=== PATIENT | male | born 1950 | race Caucasian/White ===

== ENCOUNTER 2017-09-19 14:53 | Emergency (ER) | payer OTHER, SELFPAY ==
[2017-09-19 14:54] VITALS: BP 161/75; PULSE 85; RESP 16; TEMP 36.4; O2SAT 95; BMI 42.2
--- NOTE | 2017-09-19 16:12 | RAD_ITS ---
STUDY: X-RAY - RIGHT TIBIA AND FIBULA REASON FOR EXAM: Male, 67 years old. NKI, redness and rash entire Rt lower leg since yesterday TECHNIQUE: 2 view(s) of the tibia and fibula were obtained. 3 images COMPARISON: None. FINDINGS: Normal visualized tibia. Normal visualized fibula. There do appear ossifications inferior to the medial and lateral malleoli that are well corticated which may associate with previous avulsion. Diffuse subcutaneous edema noted. RAD/Tibia & Fibula 2 Views IMPRESSION: No acute fracture. Suspect old avulsion injuries of the medial and lateral malleoli. Diffuse subcutaneous edema. Electronically Signed: Ness Carbajal MD at 16:34 EST Tel , Service support ,
[2017-09-19 16:16] LABS: Absolute Lymphocyte Count 1.18 X10^3/ul (0.83-4.51); Absolute Neutrophil Count 6.3 X10^3/uL (2.0-7.7); Basophil# 0.03 X10^3/uL; Basophil% 0.4 % (0-1); Eosinophil# 0.48 X10^3/uL; Eosinophils% 5.7 % (0-5); Hematocrit 39.6 % (40-54); Hemoglobin 12.4 g/dl (13.0-16.5); Lymphocyte # 1.18 X10^3/ul (4.0); Lymphocyte % 13.9 % (19-41); Mean Corp Hgb Conc 31.3 g/gl (32-36); Mean Corpuscular Hgb 24.5 pg (27.0-32.0); Mean Corpuscular Volume 78.1 fL (80-94); Mean Platelet Vol. 9.4 fl (6.2-12.0); Monocyte# 0.44 X10^3/uL; Monocyte% 5.2 % (0-10); Neutrophil # 6.34 X10^3/uL (2.7-7.7); Neutrophil % 74.7 % (47-70); Platelet Count 172 K/mm3 (150-450); RBC Distribution Width CV 16.5 % (11.6-14.6); RBC Distribution Width SD 46.6 fl (35.1-43.9); Red Blood Count 5.07 M/mm3 (4.6-6.2); White Blood Count 8.5 K/mm3 (4.4-11.0)
[2017-09-19 16:17] LABS: POSITIVE COUNT NO; POSITIVE DIFFERENTIAL NO; POSITIVE MORPHOLOGY NO
[2017-09-19 16:23] LABS: International Normalized Ratio 1.1; Prothrombin Time (Protime)PT. 13.7 SECONDS (11.7-14.9)
[2017-09-19 16:24] LABS: Partial Thromboplast Time 26.6 Seconds (24.1-36.2)
[2017-09-19 16:36] LABS: Anion Gap 7 (5-15); BUN 23 mg/dL (7-18); BUN/Creat Ratio 20.4 RATIO (10-20); Calcium,Total 9.2 mg/dL (8.5-10.1); Chloride 102 mmol/L (98-107); Creatinine, Serum 1.13 mg/dL (0.70-1.30); EST Glomerular Filtration Rate 69 mL/min (>60); Est Glom Filt Rate - Afr Amer 84 mL/min (>60); Estimated Creatinine Clearance 67.29 ml/min; Glucose 118 mg/dL (74-106); Potassium 3.7 mmol/L (3.5-5.1); Sodium Level 139 mmol/L (136-145)
[2017-09-19 17:17] VITALS: BP 141/70; PULSE 75; RESP 18
--- NOTE | 2017-09-19 17:36 | ED.VISSUMM ---
- ER Visit Summary Date of Service: 09/19/17 Chief Complaint: Right leg rash History of Present Illness: The patient is a 67 M presenting for evaluation secondary to right leg rash. Patient states that over the course of last 24 hours he has developed a red rash in his right leg. He states that it is itchy and aching in sensation. States the pain is somewhat worse with palpation. Denies any fevers chills or sweats. Denies any injuries. Urgent care evaluated the patient and sent him to the emergency department. Patient denies being on any sort of blood thinners does not have any rashes similar to this on his body. Physical Examination: Physical exam unremarkable and noted in the template except for right lower extremity exam. Right leg shows some blisters anteriorly ?2 that measure about 4 cm. There is petechia mainly over the anterior portion of the lower leg with some extension to the calf. 2+ DP and PT pulses. Normal range of motion of the foot ankle knee and hip. No evidence of lymphangitic streaking. No subcutaneous emphysema to palpation. Test Results: Tib-fib x-ray shows soft tissue edema. CBC shows no leukocytosis, normal platelets. Chemistry liver and coagulation panels are found to be within normal limits. Emergency Department Course and Treatment: Patient presented secondary to a rash on his leg. This did have petechia, there was some concern for the possibility of serious infection, but the patient is afebrile well-appearing has no subcutaneous emphysema no evidence of necrotizing fasciitis at this time. X-ray was obtained and was negative laboratory workup was essentially unremarkable. At this point the likelihood is that patient has a beta hemolytic strep infection of his lower leg, but at this point I do not believe that he requires admission. Will be started on a course of Keflex, and was discharged with strict discharge instructions for which to return. He will follow-up with his primary care physician within the next 3 days. Disposition: Discharge Impression: 1. Right leg cellulitis This note was generated with [employer] dictation software. It may contain incorrect words, spelling, and punctuation that were not noted in review of the chart prior to signing ED Disposition - Plan for ED Patient: Disposition: Home or Assisted Living Chief Complaint: Lower Extremity Injury Diagnosis: Cellulitis Instructions: Cellulitis - Causes,Symptoms,Treating Prescriptions: Cephalexin [Keflex] 500 mg PO Q6 #40 cap Referrals: Johnny Mcallister MD [Primary Care Provider] - 3-5 Days
[2017-09-19] MEDS: Cephalexin 250 MG Capsule 500 MG PO (17:58)
[2017-09-19 18:00] VITALS: BP 143/64; PULSE 87; RESP 20; TEMP 36.6; O2SAT 98
== END 2017-09-19 18:00 | disposition home or self-care (01) ==
PROVIDERS: Emergency Provider Emergency Medicine; Family Provider Internal Medicine; PCP Internal Medicine
DX: L03.115 Cellulitis of right lower limb (principal); R23.3 Spontaneous ecchymoses; E66.9 Obesity, unspecified; J44.9 Chronic obstructive pulmonary disease, unspecified; E11.9 Type 2 diabetes mellitus without complications; I10 Essential (primary) hypertension; E78.00 Pure hypercholesterolemia, unspecified; G47.33 Obstructive sleep apnea (adult) (pediatric); G25.81 Restless legs syndrome; Z79.51 Long term (current) use of inhaled steroids; Z79.82 Long term (current) use of aspirin; Z79.4 Long term (current) use of insulin; Z79.899 Other long term (current) drug therapy
CPT/HCPCS: 73590; 80048; 85025; 85610; 85730; 99283; A4216

== ENCOUNTER → 2021-04-15 16:06 | Outpatient (CLI) | payer OTHER, SELFPAY | PROVIDERS: PCP Internal Medicine; Visit Provider Urology | DX: R31.0 Gross hematuria (principal) | CPT/HCPCS: 87077; 87086; 87088; 87186 ==

== ENCOUNTER 2021-05-05 08:18 | Day surgery (SDC) | payer MEDICARE, OTHER, SELFPAY ==
[2021-05-03 15:08] LABS: Probe Check PASS; Specimen Processing Control PASS
[2021-05-05] VITALS (7 sets, daily range): BP systolic 132–155; BP diastolic 58–76; PULSE 76–87; RESP 12–18; TEMP 36.2–36.5; O2SAT 92–97; BMI 42.7
[2021-05-05] MEDS: Lactated Ringers 1,000 ML 100 ML IV (09:08)
[2021-05-05 09:20] LABS: Bedside Glucose 190 mg/dL (70-110)
--- NOTE | 2021-05-05 09:55 | PCM.DC ---
Discharge Instructions Diet Discharge Diet: No restrictions Activity Discharge Activity: Return to Normal Activity and May Not Drive (while taking narcotic pain medications.) Dressing / Incision Call your doctor if you observe: Fever of 101 or Higher Catheter: Steiner to leg bag and Steiner to large bag Drain: [place] Follow Up Care Please Follow Up With: Max Mcdonough MD When: Call [phone] for an appointment Test Results: Test results from this visit will be discussed in further detail at your follow-up appointment, if applicable. Discharge Plan Admission Primary Reason for Your Visit: sp tube Attending Provider: Max Mcdonough Primary Care Provider: Montez Glass Discharge Orders/Prescriptions Prescriptions: Continued lisinopril 20 MG tablet 20 mg PO BID RF: 0 sertraline 100 MG tablet 150 mg PO DAILY RF: 0 simvastatin 40 MG tablet 40 mg PO QHS RF: 0 metformin 1,000 MG tablet 1,000 mg PO BID RF: 0 hydrochlorothiazide 25 MG tablet 25 mg PO DAILY RF: 0 albuterol sulfate [ProAir HFA] 1 PUFF inhaler 1 puff inhalation Q6H PRN PRN (Reason: Bronchodialation) RF: 0 insulin lispro [Humalog KwikPen Insulin] 100 UNIT/ML insulin pen 70 units subcut TID RF: 0 Lantus Solostar U-100 Insulin 100 UNITS/ML insulin pen 80 unit subcut BID RF: 0 Breo Ellipta 1 EACH blister with device 1 puff inhalation DAILY RF: 0 pramipexole [Mirapex] 0.5 MG tablet 1 mg PO QHS RF: 0 Held aspirin 81 MG tablet,delayed release (DR/EC) 81 mg PO DAILY RF: 0 Hold Instructions: Resume on 05/12/21. Referrals / Follow Up: Max Mcdonough MD [STAFF PHYSICIAN] - Montez Glass MD [Primary Care Provider] - Disposition Disposition (needs filled in before D/C Order can be placed): Home, Self Care
[2021-05-05] MEDS: Lubricating Jelly 60 GM Tube 30 GM TOPICAL (10:35)
[2021-05-05] MEDS: Lidocaine 2% (20 ml mdv) 20 ML Vial (10:35)
--- NOTE | 2021-05-05 10:48 | OP.PCM_ITS ---
Report of Operation Date of Procedure: 05/05/21 Pre-Operative Diagnosis: Urinary incontinence history of prostate cancer status post multiple treatments with chronic incontinence and chronic Steiner catheter Post-Operative Diagnosis: The same Surgery/Procedure Performed:: Placement of suprapubic catheter Description of Surgical Findings:: This is a 71-year-old gentleman who had prostate cancer was treated with radiation therapy then had recurrence this was treated with cryoablation he now has significant incontinence and leakage of urine he underwent a sphincter placement but the sphincter failed and had to be removed so now at this point he just has a chronic Steiner catheter which is changed monthly the catheter is very bothersome and painful to the penis so I recommended we manage his bladder incontinence with a suprapubic catheter he was agreeable with this understands it with this approach he still can have incontinence and leakage he still can have risk of infection and bleeding encrustation bladder stones and he still cannot get any the catheter change about every month but he was agreeable with the suprapubic catheter as a management option. Patient was taken back to the operating room at the [facility] duction of general anesthesia he was placed upon the table and then dorsolithotomy position. The lower abdomen penis and testicles were prepped and draped usual sterile fashion went in with a flexible cystoscope entire length the urethra was normal the prostate was fairly raw tissue within the prostate no sphincter was identified open bladder neck and open sphincter once inside the bladder distended the bladd er is much is a good with the running water through the flexible cystoscope I then used a finder needle to find away right suprapubically from the skin into the bladder I then introduced the trocar went right below the pubic bone into the bladder and direct visualization into the bladder and then put the sheath through the trocar and then to the sheath to place a 16 [place] catheter into the bladder and then filled the catheter with 10 cc put this to gravity drainage remove the sheath and peeled peel off the sheath from the catheter and then secured the catheter to the skin with stitches. Patient will needed catheter for 6 weeks and will come the office for catheter change in 6 weeks. Surgeon: robinson Type of Anesthesia: General Drains: sp tube Admit VTE Documentation VTE Present on Admission: No VTE Mechan Device Prophylaxis: SCD's
[2021-05-05 11:06] LABS: Bedside Glucose 165 mg/dL (70-110)
== END 2021-05-05 12:40 | disposition home or self-care (01) ==
LOC: SDC 08:19 → AC 08:19
PROVIDERS: PCP Family Medicine; Referring Provider Urology; Visit Provider Urology
PROC: 0T9B40Z Drainage of Bladder with Drainage Device, Percutaneous Endoscopic Approach (ICD-10-PCS; CPT 52005; principal; 2021-05-05 10:15)
DX: Z46.6 Encounter for fitting and adjustment of urinary device (principal); R32 Unspecified urinary incontinence; Z85.46 Personal history of malignant neoplasm of prostate; Z92.3 Personal history of irradiation; Z79.899 Other long term (current) drug therapy; Z79.4 Long term (current) use of insulin; Z79.82 Long term (current) use of aspirin; J44.9 Chronic obstructive pulmonary disease, unspecified; E11.9 Type 2 diabetes mellitus without complications; E78.00 Pure hypercholesterolemia, unspecified; F32.9 Major depressive disorder, single episode, unspecified; G47.30 Sleep apnea, unspecified
CPT/HCPCS: 51102; 82962; 87635; C9803; J7120; U0005; J2405; U0003

== ENCOUNTER 2021-08-31 16:33 | Outpatient (CLI) | payer MEDICARE, OTHER, SELFPAY ==
--- NOTE | 2021-08-31 16:42 | RAD_ITS ---
EXAM: XR ABDOMEN, 2 VIEWS CLINICAL INDICATION: ABD.PAIN TECHNIQUE: Frontal view of the abdomen/pelvis with upright view of the abdomen. This report was created using [employer] report generation technology. COMPARISON: None. FINDINGS: LOWER THORAX: No acute pathology. INTRAPERITONEAL SPACE: No free air. GASTROINTESTINAL TRACT: Stool throughout the colon suggesting constipation. Non-obstructive. No bowel or stomach distention. ORGANS: Unremarkable as visualized. No organomegaly. No abnormal calcifications. BONES/JOINTS: Degenerative findings in the lumbar spine. SOFT TISSUES: No acute pathology. RAD/Abd Inc Decub and/or Erect IMPRESSION: Stool throughout the colon suggesting constipation. Electronically Signed: Jeronimo Maza MD at 17:10 EST ,
[2021-08-31 17:10] LABS: Absolute Neutrophil Count 8.7 X10^3/uL (2.0-7.7); Basophil# 0.03 X10^3/uL; Basophil% 0.3 % (0-1); Eosinophil# 0.25 X10^3/uL; Eosinophils% 2.2 % (0-5); Hematocrit 41.3 % (40-54); Hemoglobin 13.3 g/dL (13.0-16.5); Lymphocyte % 14.8 % (19-41); Mean Corp Hgb Conc 32.2 g/dL (32-36); Mean Corpuscular Hgb 24.6 pg (27.0-32.0); Mean Corpuscular Volume 76.3 fL (80-94); Mean Platelet Vol. 9.4 fl (6.2-12.0); Monocyte# 0.79 X10^3/uL; Monocyte% 6.9 % (0-10); NRBC Flagged by Analyzer 0 % (0-5); Neutrophil # 8.66 X10^3/uL (2.7-7.7); Neutrophil % 75.3 % (47-70); Platelet Count 227 K/mm3 (150-450); RBC Distribution Width CV 17.6 % (11.6-14.6); RBC Distribution Width SD 47.8 fl (35.1-43.9); Red Blood Count 5.41 M/mm3 (4.6-6.2); White Blood Count 11.5 K/mm3 (4.4-11.0)
[2021-08-31 18:24] LABS: ALB/GLOB Ratio 0.9 RATIO (0.9-2.4); AST(SGOT) 20 U/L (15-37); Alanine Aminotransfer ALT/SGPT 33 U/L (16-61); Albumin, Serum 3.6 g/dL (3.2-5.0); Alkaline Phosphatase 68 U/L (45-117); Anion Gap 8 (5-15); BUN 18 mg/dL (7-18); BUN/Creat Ratio 16.4 RATIO (10-20); Calcium,Total 9.3 mg/dL (8.5-10.1); Chloride 98 mmol/L (98-107); EST Glomerular Filtration Rate 71 mL/min (>60); Est Glom Filt Rate - Afr Amer 85 mL/min (>60); Globulin 4.1 g/dL (2.2-4.2); Glucose 282 mg/dL (74-106); Potassium 4.1 mmol/L (3.5-5.1); Protein, Total 7.7 g/dL (6.4-8.2); Sodium Level 134 mmol/L (136-145); Thyroid Stim Hormone (TSH) 1.68 uIU/mL (0.358-3.74)
[2021-09-01 09:08] LABS: Hepatitis C Antibody Non-Reactive (Nonreactive); Vitamin D,25 Hydroxy 27.6 ng/mL
== END 2021-08-31 23:59 | disposition short-term general hospital (02) ==
LOC: RAD 16:38 → LAB 16:56
PROVIDERS: PCP Family Medicine; Referring Provider Family Medicine Geriatric Medicine; Visit Provider Family Medicine Geriatric Medicine
DX: E11.9 Type 2 diabetes mellitus without complications (principal); E55.9 Vitamin D deficiency, unspecified; R10.9 Unspecified abdominal pain; Z12.5 Encounter for screening for malignant neoplasm of prostate; Z13.89 Encounter for screening for other disorder
CPT/HCPCS: 36415; 74019; 80053; 82306; 84153; 84443; 85025; 86803; G0103

== ENCOUNTER 2021-09-14 07:41 | Outpatient (CLI) | payer MEDICARE, OTHER, SELFPAY ==
--- NOTE | 2021-09-14 07:55 | CT_ITS ---
STUDY: LOW DOSE CT LUNG CANCER SCREENING REASON FOR EXAM: Male, 71 years old. HX OF TOBACCO USE. Patient smoked 2 packs per day for 15 years. RADIATION DOSAGE (If Supplied By Facility): CTDIvol = ( 4.02 ) mGy, DLP = ( 156.02 ) mGycm TECHNIQUE: No contrast was administered. Low dose technique was utilized (average mAS-38 and kVp 120). 1.25 mm axial source images with a slice interval of 1.25-mm were reconstructed in lung windows. 2.5 mm axial source images with a slice interval of 2.5-mm were reconstructed in lung windows. 5.0 mm axial source images with a slice interval of 5.0-mm were reconstructed in soft tissue windows. Nodule measured using lung windows on PACS and/or independent workstation with automated measurement of minimum and maximum diameter. Nodule measurement reported as average diameter rounded to the nearest whole number. Growth is defined as an increase ins size of greater than 1.5 mm. COMPARISON: None. NODULES: No suspicious nodules are seen. Emphysema: Mild scarring and bronchiectasis in the posterior medial segments of both lower lobes. Endobronchial lesion: Unremarkable Aorta: Minimal atherosclerotic plaques of the aortic arch. Coronary arteries: Coronary artery calcifications. Heart: Unremarkable Pulmonary artery: Unremarkable Mediastinal nodes: Small benign-appearing mediastinal lymph nodes. Other chest and abdominal findings: Degenerative changes of the thoracic vertebrae. CT/Low Dose CT Lung Screening IMPRESSION: Lung-RADS category 2 - Continue annual screening with LDCT in 12 months. IMPORTANT NOTES FOR USE: ACR Lung-RADS Version 1.1 Assessment Categories Release Date: 2018 Category: Coded 0-4 bases on nodule(s) with highest degree of suspicion. Negative screen is defined as categories 1 and 2; a positive screen is defined as categories 3 and 4. Category 3 and 4A nodules that are unchanged on interval CT should be coded as category 2, and individuals returned to screening in 12 months. Category 4X: Category 3 or 4 nodules with additional imaging findings that increase the suspicion of lung cancer, such as spiculation, GGN that doubles in size in 1 year, enlarged lymph notes, etc. Category Modifiers: S (significant finding unrelated to lung cancer) Electronically Signed: Ismael Manuel MD at 11:58 EST ,
--- NOTE | 2021-09-14 08:09 | AAAS_ITS ---
Reason For Study: Routine general medical exam Aorta Measurements Aorta Doppler Measurements Proximal aorta measures1.69 x 1.65cm. in cross- Peak systolic flow velocities within the proximal sectional axis. aorta measure 66.1 cm/sec. Proximal aorta measures1.69cm. in longitudinal Peak systolic flow velocities within the mid aorta axis. measure 78.9 cm/sec. Mid aorta measures1.63 x 1.65cm. in cross- Peak systolic flow velocities within the distal sectional axis. aorta measure 69.8 cm/sec. Mid aorta measures1.61cm. in longitudinal axis. Distal aorta measures1.90 x 1.87cm. in cross- sectional axis. Distal aorta measures1.89cm. in longitudinal axis. Left Iliac Artery Left iliac artery measures 1.16 x 1.19 cm. in the cross-sectional axis. Left iliac artery measures 1.17 cm. in the longitudinal axis. Peak systolic velocity in the left iliac artery measures 123.3 cm/sec. Right Iliac Artery Right iliac artery measures 0.98 x 0.98 cm. in the cross-sectional axis. Right iliac artery measures 1.04 cm. in the longitudinal axis. Peak systolic velocity in the right iliac artery measures 119 cm/sec. Procedure Aorta IVC Iliac vasculature or bypass grafts 85246. Technically difficult exam due to pt body habitus. Exam performed in department. VL/AAA Screening Interpretation Summary The dimensions of the intra-abdominal aorta appear normal, without evidence of aneurysmal dilatation. The iliac arteries also appear normal in caliber bilaterally. The i ntra-abdominal aorta and iliac arteries are patent, demonstrating pulsatile arterial flow and normal peak systolic velocities. Ordering Physician: Sachin Dominguez Referring Physician: Sachin Dominguez Chi Performed By: Yulissa Worley RVT
== END 2021-09-14 23:59 | disposition home or self-care (01) ==
LOC: CT 07:42
PROVIDERS: PCP Family Medicine Geriatric Medicine; Referring Provider Family Medicine Geriatric Medicine; Visit Provider Family Medicine Geriatric Medicine
DX: Z87.891 Personal history of nicotine dependence (principal)
CPT/HCPCS: 71271; 76706

== ENCOUNTER 2021-09-29 08:07 | Outpatient (CLI) | payer MEDICARE, OTHER, SELFPAY | END 2021-09-29 23:59 | disposition home or self-care (01) | PROVIDERS: PCP Family Medicine Geriatric Medicine; Referring Provider Urology; Visit Provider Urology | DX: Z00.00 Encounter for general adult medical examination without abnormal findings (principal) ==

== ENCOUNTER 2021-10-06 08:43 | Outpatient (CLI) | payer MEDICARE, OTHER, SELFPAY ==
--- NOTE | 2021-10-06 09:00 | PET_ITS ---
EXAMINATION: FDG PET/CT INDICATIONS: A 71-year-old male with history of carcinoma of the prostate presenting for restaging examination. COMPARISON EXAMINATION: None available TECHNIQUE: Following the intravenous administration of 12.83 mCi of F-18 deoxyglucose via the right antecubital fossa, multiplanar image acquisitions of the neck, chest, abdomen and pelvis to level of mid thigh, obtained at one hour post radiopharmaceutical administration contemporaneously interpreted with the current CT of the neck, chest, abdomen and pelvis to level of mid thigh, dated 10/06/21 via coregistration reveal: SERUM GLUCOSE LEVEL: 110 mg/dl. HEIGHT: 70 inches. WEIGHT: 296 lbs. FINDINGS: 1. There is no quantitative scintigraphic evidence of abnormal increased glucose metabolism on meticulous inspection of whole body acquisitions to include all three axis reconstructions. 2. Normal physiologic distribution of the radiopharmaceutical is apparent in the hepatic and splenic parenchyma, both renal units, bladder and visualized intestinal tract. The visualized portion of the cerebral cortical-subcortical structures demonstrate symmetric and preserved glucose metabolism. Diffuse radiopharmaceutical concentration is noted in all four quadrants of the abdomen and pelvis. There is radiopharmaceutical defined in the suprapubic catheter, as well as prostatic urethra. Pertinent CT findings are as follows: CHEST: There is atherosclerotic calcification defined in the thoracic aorta without evidence of dilatation-aneurysm formation. Coronary arterial calcification is observed. Bilateral axillary and scattered mediastinal soft tissue densities reveal no evidence of quantitatively significant increased FDG uptake. There are no parenchymal densities-nodules defined in the right and left hemithorax with discernible increased tracer concentration. ABDOMEN AND PELVIS: There is atherosclerotic calcification defined in the abdominal aorta without evidence of dilatation-aneurysm formation. Pelvic arterial calcification is observed. A suprapubic catheter is defined. Bilateral fat containing inguinal hernias are observed. Dystrophic calcification is manifest within the lower pelvis associated with the apparent prostate gland-prostate bed. Bilateral inguinal soft tissue densities with fatty hilus are ametabolic. Scattered subcentimeter mesenteric, as well as retroperitoneal soft tissue nodules are non-glucose avid. SKELETAL: Degenerative changes are noted in the cervical, thoracic and lumbar spine without evidence of increased radiopharmaceutical concentration. There is no evidence of sclerotic, mixed sclerotic-lytic and/or lytic changes noted on review of the skeletal structures manifesting an increase in glucose metabolism. PET/PET/CT Tumor Base -Thigh Subs IMPRESSION: 1. NEGATIVE EXAMINATION. There is no definitive quantitative scintigraphic evidence of FDG avid recurrent-metastatic/viable neoplasm. Electronic Signature Anuel Ocasio D.O. Accurate Quantification of SUVs for this report are calculated using the exclusive [employer]. ([place].S. Patent No. [id number] [id number]). Standardization and correction of the FDG SUV metric via [employer] technology allow for vendor non-specific objective quantitative examination comparison and optimization of the sensitivity and specificity of the FDG PET-CT examination. Electronically Signed: Anuel Ocasio DO at 8:14 EST ,
== END 2021-10-06 23:59 | disposition home or self-care (01) ==
PROVIDERS: PCP Family Medicine Geriatric Medicine; Referring Provider Urology; Visit Provider Urology
DX: C61 Malignant neoplasm of prostate (principal); R97.20 Elevated prostate specific antigen [PSA]
CPT/HCPCS: 78815; A9552

== ENCOUNTER 2021-11-10 10:43 | Outpatient (CLI) | payer MEDICARE, OTHER, SELFPAY ==
--- NOTE | 2021-11-10 11:00 | PET_ITS ---
STUDY: WHOLE-BODY PET/CT STUDY REASON FOR EXAM: Male, 71 years old. MALIGNANT NEOPLASM OF PROSTATE RADIATION DOSAGE (If Supplied By Facility): CTDIvol = ( ) mGy, DLP = ( ) mGycm. Individualized dose optimization techniques were used for this CT.? FLUOROSCOPY TIME (if supplied): ( ) minutes/seconds TECHNIQUE: Patient was injected with 9.25 mCi of F-18 FDG. A whole body multiplanar PET study was performed along with simultaneous noncontrasted CT scan. COMPARISON: 10/06/2021 FINDINGS: There is abnormal PET activity noted in the AP window lymph node with uptake value of 6. This is concerning for a neoplastic process. This was not seen on the previous study No other suspicious increased PET activity identified. Normal physiologic activity noted within the brain, salivary glands, heart, liver spleen and GI and systems. No suspicious activity within osseous structures. The CT images demonstrate that the lymph node in question is on axial image 240, series 202 and measures 1.11 cm in short axis dimension. No other suspicious adenopathy is noted. There is no superimposed acute pulmonary process. There are calcified coronary vessels. Cuts through the abdomen do not show suspicious solid organ abnormality, there is a parapelvic right renal cyst. Scattered colonic diverticula noted, there is a suprapubic catheter present. PET/PET/CT Tumor Base -Thigh Init IMPRESSION: Abnormal increased activity in the AP window lymph node with uptake value of 6. This is concerning for a metastatic lesion and was not present on the previous study. Electronically Signed: Remi Baron MD at 16:00 EDT ,
== END 2021-11-10 23:59 | disposition home or self-care (01) ==
LOC: ONC 10:43
PROVIDERS: PCP Family Medicine Geriatric Medicine; Referring Provider Urology; Visit Provider Urology
DX: C61 Malignant neoplasm of prostate (principal)
CPT/HCPCS: 78815; A9595

== ENCOUNTER 2021-11-13 13:27 | Inpatient (IN) | payer MEDICARE, OTHER, SELFPAY ==
[2021-11-13] VITALS (13 sets, daily range): BP systolic 126–185; BP diastolic 48–65; PULSE 75–91; RESP 15–22; TEMP 36.9–40.1; O2SAT 83–99; BMI 43.0
--- NOTE | 2021-11-13 13:33 | RAD_ITS ---
STUDY: X-RAY CHEST REASON FOR EXAM: Male, 71 years old. fever TECHNIQUE: Single AP portable view of the chest. COMPARISON: None. FINDINGS: The lungs are clear and expanded. There is no demonstrated pleural abnormality. Normal size heart. Normal mediastinum and sona. Normal visualized pulmonary arteries. Normal visualized aortic arch and descending thoracic aorta. Normal visualized thoracic spine. Normal visualized ribs, clavicles, and shoulders. There is no demonstrated abnormality of the visualized soft tissue structures of the upper abdomen. RAD/Chest 1 View (Portable) IMPRESSION: Normal x-ray examination of the chest. Electronically Signed: Anuel Kimball MD at 15:20 EDT ,
--- NOTE | 2021-11-13 13:33 | EKG12_ITS ---
Test Reason : Blood Pressure : / mmHG Vent. Rate : 083 BPM Atrial Rate : 083 BPM P-R Int : 204 ms QRS Dur : 082 ms QT Int : 376 ms P-R-T Axes : 058 -09 076 degrees QTc Int : 441 ms Normal sinus rhythm Poor R wave progression Confirmed by NEEL ESPITIA, CJ ([id number]), editorial assistant JULY PELAYO ([id number]) on 11/15/2021 12:56:11 PM Referred By: MATT Confirmed By:CJ SHAIKH MD
[2021-11-13] MEDS: 0.9% Normal Saline 1,000 ML 999 ML IV ×2 (13:44→15:51)
[2021-11-13] MEDS: Acetaminophen 500 MG Tablet 1000 MG PO (13:50)
[2021-11-13] MEDS: Ondansetron 4 MG/2 ML Vial IV (13:50)
--- NOTE | 2021-11-13 13:53 | EX.ED.DYSGE1 ---
HPI <MILKA Esquivel - Last Filed: 11/13/21 17:43> History of Present Illness Chief Complaint: Fever Narrative Narrative: 71-year-old male with PMH of HTN, HLD, DM2, COPD, HAN, history of prostate cancer, suprapubic catheter presents with a fever x3 days. He has had fever with nausea and dry heaving. He has been taking Tylenol with the last dose last night. Denies vomiting. Denies chest pain, shortness of breath, or cough. He has chronic abdominal pain and constipation from his history of radiation treatments for the prostate cancer but this is at baseline. No diarrhea. His suprapubic catheter was changed [address] Mcdonough and is changed monthly. Denies urinary changes or signs of infection. PFSH <MILKA Esquivel - Last Filed: 11/13/21 17:43> PFSH Medical History Bladder disease Bruising Cancer COPD (chronic obstructive pulmonary disease) CPAP (continuous positive airway pressure) dependence Depression Diabetes Dietary restriction Former smoker High cholesterol History of cataract History of diverticulitis History of edema History of stress test Hypertension Indwelling urethral catheter present Insulin dependent diabetes mellitus Prostate disease Restless legs Shortness of breath on exertion Sleep apnea Wears glasses Wears hearing aid Home Medications Breo Ellipta 1 puff INHALATION DAILY 05/31/17 [History Last Taken 05/05/21] Lantus Solostar U-100 Insulin 80 unit SUBCUT BID 05/31/17 [History Last Taken 05/05/21 40] albuterol sulfate [ProAir HFA] 1 puff INHALATION Q6H PRN PRN 05/31/17 [History Last Taken Unknown] hydrochlorothiazide 25 mg PO DAILY 05/31/17 [History Last Taken Unknown] insulin lispro [Humalog KwikPen Insulin] 70 units SUBCUT TID 05/31/17 [History Last Taken Unknown] lisinopril 20 mg PO BID 05/31/17 [History Last Taken Unknown] metformin 1,000 mg PO BID 05/31/17 [History Last Taken Unknown] simvastatin 40 mg PO QHS 05/31/17 [History Last Taken Unknown] aspirin 81 mg PO DAILY 09/19/17 [History Last Taken Unknown] pramipexole [Mirapex] 1 mg PO QHS 09/19/17 [History Last Taken Unknown] citalopram 20 mg PO DAILY 11/13/21 [History Last Taken Unknown] plecanatide [Trulance] 3 mg PO DAILY 11/13/21 [History Last Taken Unknown] primidone 100 mg PO QHS 11/13/21 [History Last Taken Unknown] solifenacin 10 mg PO DAILY 11/13/21 [History Last Taken Unknown] Allergy/AdvReac Type Severity Reaction Status Date / Time No Known Allergies Allergy Verified 05/05/21 08:45 Family History (Updated 11/13/21 @ 17:56 by Quintin JARQUIN) Father Diabetes Mother Heart disease Surgical History History of eye surgery History of implantation of artificial sphincter Social History (Updated 11/13/21 @ 17:56 by Quintin JARQUIN) Smoking Status: Former smoker Tobacco: How many years used: 20 how long ago did patient quit smokin years ago, was smoking two packs per day. alcohol intake: former ROS <MILKA Esquivel - Last Filed: 11/13/21 17:43> ROS ED ROS Narrative Constitutional: Positive for fever, chills, malaise. Eyes: Negative for visual change. ENT: Negative for sore throat, ear pain, rhinorrhea. CVS: Negative for palpitations, chest pain, syncope. Respiratory: Negative for shortness of breath, cough, orthopnea. GI: Positive for abdominal pain?chronic, nausea, constipation. Negative for vomiting, diarrhea, melena, hematochezia. : Negative for dysuria, hematuria or frequency. Neuro: Negative for headache, motor/sensory dysfunction. Skin: Negative for rash, abscess, or wound. Musc: Negative for joint pain, swelling, trauma. Heme: Negative for easy bruising, bleeding, lymphadenopathy. EXAM <MILKA Esquivel - Last Filed: 11/13/21 17:43> Physical Exam Narrative Exam Narrative: CONST: Patient lying in bed, diaphoretic. EYES: Normal inspection. ENT: Normal inspection, slightly dry mucous membranes. NECK: Normal inspection. RESP: No respiratory distress, CTAB. CVS: Regular rate and rhythm, no murmur, no gallop. ABD: Soft and nontender, no guarding or rebound, mild distention, no hepatosplenomegaly. Back: Normal inspection. SKIN: Color normal, no rash, warm, dry, intact. EXTREMITIES: Normal appearance, no pedal edema. NEURO: Oriented x4. PSYCH: Normal affect. Const Vital Signs: 11/13/21 13:28 11/13/21 13:51 11/13/21 13:59 Temperature 104.2 F H 100.3 F H Temperature Source Tympanic Oral Pulse Rate 87 87 Respiratory Rate 18 22 H Respiratory Effort Normal Respiratory Pattern Normal Blood Pressure 185/65 H 185/65 H Blood Pressure Mean 105 105 Pulse Ox 92 83 Oxygen Delivery Method Room Air Nasal Cannula Oxygen Flow Rate (L/min) 3 11/13/21 14:01 11/13/21 15:11 11/13/21 15:31 Temperature 103.1 F H 103 F H Temperature Source Oral Oral Pulse Rate 79 Respiratory Rate 15 Respiratory Effort Respiratory Pattern Blood Pressure 151/59 H Blood Pressure Mean 89 Pulse Ox 92 96 Oxygen Delivery Method Nasal Cannula Nasal Cannula Oxygen Flow Rate (L/min) 3 3 11/13/21 16:45 11/13/21 16:46 11/13/21 17:00 Temperature 100.3 F H 100.3 F H 99.4 F H Temperature Source Oral Oral Oral Pulse Rate 77 75 Respiratory Rate 18 15 Respiratory Effort Respiratory Pattern Blood Pressure 126/48 H 130/57 H Blood Pressure Mean 74 81 Pulse Ox 96 96 Oxygen Delivery Method Nasal Cannula Nasal Cannula Oxygen Flow Rate (L/min) 3 2 <Dr. Olman Glez, DO - Last Filed: 11/13/21 18:02> Physical Exam Const Vital Signs: 11/13/21 13:28 11/13/21 13:51 11/13/21 13:59 Temperature 104.2 F H 100.3 F H Temperature Source Tympanic Oral Pulse Rate 87 87 Respiratory Rate 18 22 H Respiratory Effort Normal Respiratory Pattern Normal Blood Pressure 185/65 H 185/65 H Blood Pressure Mean 105 105 Pulse Ox 92 83 Oxygen Delivery Method Room Air Nasal Cannula Oxygen Flow Rate (L/min) 3 11/13/21 14:01 11/13/21 15:11 11/13/21 15:31 Temperature 103.1 F H 103 F H Temperature Source Oral Oral Pulse Rate 79 Respiratory Rate 15 Respiratory Effort Respiratory Pattern Blood Pressure 151/59 H Blood Pressure Mean 89 Pulse Ox 92 96 Oxygen Delivery Method Nasal Cannula Nasal Cannula Oxygen Flow Rate (L/min) 3 3 11/13/21 16:45 11/13/21 16:46 11/13/21 17:00 Temperature 100.3 F H 100.3 F H 99.4 F H Temperature Source Oral Oral Oral Pulse Rate 77 75 Respiratory Rate 18 15 Respiratory Effort Respiratory Pattern Blood Pressure 126/48 H 130/57 H Blood Pressure Mean 74 81 Pulse Ox 96 96 Oxygen Delivery Method Nasal Cannula Nasal Cannula Oxygen Flow Rate (L/min) 3 2 [facility] <MILKA Esquivel - Last Filed: 11/13/21 17:43> [facility] Narrative Medical decision making narrative: Patient presents with a fever. He appears ill but nontoxic. Temp was 104.2F, otherwise normal vital signs. He is slightly diaphoretic and has dry mucous membranes. Heart is regular. Lungs clear. Abdomen soft with no peritoneal signs. Labs show leukocytosis of 14.1 and lactate of 2.6. Chest x-ray and rapid Covid and flu testing are negative. Clean urinalysis sample from his suprapubic catheter is consistent with UTI. Urine and blood cultures are pending. CT shows stranding of the right kidney which is likely pyelonephritis. Normal left kidney. Patient was treated with IV fluids, Tylenol, Toradol, and Rocephin and will be admitted for sepsis and complicated UTI. Case was discussed with the hospitalist and he was transferred to the floor in stable condition. Diagnosis 1. Right pyelonephritis, complicated UTI with suprapubic catheter 2. Sepsis ED attending interpretation 1 view chest shows normal heart size, no acute infiltrate. Lab Data Labs: Laboratory Results - last 24 hr 11/13/21 11/13/21 11/13/21 13:45 13:45 13:45 WBC 14.1 H RBC 5.17 Hgb 12.7 L Hct 38.9 L MCV 75.2 L MCH 24.6 L MCHC 32.6 RDW Std Deviation 46.4 H RDW Coeff of Bhavin 17.2 H Plt Count 168 MPV 9.0 Immature Gran % (Auto) 0.600 Neut % (Auto) 87.2 H Lymph % (Auto) 6.3 L [place] % (Auto) 5.7 Eos % (Auto) 0.1 Baso % (Auto) 0.1 Absolute Neuts (auto) 12.3 H Absolute Lymphs (auto) 0.88 Nucleated RBC % 0 PT 14.8 INR 1.2 APTT 27.6 Sodium 133 L Potassium 3.5 Chloride 97 L Carbon Dioxide 27.0 Anion Gap 9 BUN 21 H Creatinine 1.30 Estim Creat Clear Calc 55.37 Est GFR (MDRD) Af Amer 70 Est GFR (MDRD) Non-Af 58 L BUN/Creatinine Ratio 16.2 Glucose 251 H Lactic Acid Calcium 8.4 L Total Bilirubin 0.70 AST 17 ALT 29 Alkaline Phosphatase 62 Total Protein 7.3 Albumin 3.3 Globulin 4.0 Albumin/Globulin Ratio 0.8 L Urine Color Urine Clarity Urine pH Ur Specific [place] Urine Protein Urine Glucose (UA) Urine Ketones Urine Occult Blood Urine Nitrite Urine Bilirubin Urine Urobilinogen Ur Leukocyte Esterase Urine RBC Urine WBC Ur Squamous Epith Cells Urine Bacteria Urine Mucus 11/13/21 11/13/21 13:45 15:45 WBC RBC Hgb Hct MCV MCH MCHC RDW Std Deviation RDW Coeff of Bhavin Plt Count MPV Immature Gran % (Auto) Neut % (Auto) Lymph % (Auto) [place] % (Auto) Eos % (Auto) Baso % (Auto) Absolute Neuts (auto) Absolute Lymphs (auto) Nucleated RBC % PT INR APTT Sodium Potassium Chloride Carbon Dioxide Anion Gap BUN Creatinine Estim Creat Clear Calc Est GFR (MDRD) Af Amer Est GFR (MDRD) Non-Af BUN/Creatinine Ratio Glucose Lactic Acid 2.6 H* Calcium Total Bilirubin AST ALT Alkaline Phosphatase Total Protein Albumin Globulin Albumin/Globulin Ratio Urine Color Yellow Urine Clarity Cloudy Urine pH 6.0 Ur Specific [place] 1.015 Urine Protein 100 H Urine Glucose (UA) Normal Urine Ketones 15 H Urine Occult Blood 250 H Urine Nitrite Positive H Urine Bilirubin Negative Urine Urobilinogen Normal Ur Leukocyte Esterase 500 H Urine RBC 5-10 SEEN Urine WBC 25-50 SEEN Ur Squamous Epith Cells 0-5 SEEN Urine Bacteria 3+ Urine Mucus 0 SEEN Radiography Diagnostic Testing: Clinical Impression(s) from Imaging Studies Chest X-Ray 11/13/21 13:33 IMPRESSION: Normal x-ray examination of the chest. Electronically Signed: Anuel Kimball MD at 15:20 EDT , Abdomen/Pelvis CT 11/13/21 15:38 IMPRESSION: Suspect right pyelonephritis. Electronically Signed: Anuel Kimball MD at 17:26 EDT , <Dr. Olman Glez, DO - Last Filed: 11/13/21 18:02> [facility] MDM Narrative Medical decision making narrative: 71-year-old male with acute on chronic abdominal pain, fevers, generalized weakness. He has a suprapubic catheter as well. Patient states that other than a mild increasing amount of pain he is having his abdomen he does not have any shortness of breath or chest pain. He does not have a cough. He has had some constipation issues. He denies black or bloody stools. Sepsis work-up was initiated. Rapid flu, rapid COVID. Chest x-ray my interpretation shows no acute cardiopulmonary process and radiologist agree. Patient found to have a leukocytosis of 14.1 with left shift. Coag studies normal. BMP unremarkable. Glucose slightly elevated at 251 without anion gap. Creatinine 1.30. LFTs normal. Urinalysis is obtained and consistent with UTI. Lactic acid elevated at 2.5. Patient given Rocephin and 2 L of IV fluids. Patient had CT of the abdomen pelvis with IV contrast which showed right-sided pyelonephritis. Feel the patient would benefit from admission and IV antibiotics. Patient was amenable to this. Discussed with the hospitalist for admission. Impression: 1. Febrile illness 2. Leukocytosis 3. Pyelonephritis 4. Sepsis Lab Data Attestation: I reviewed the patient's lab results. Labs: Laboratory Results - last 24 hr 11/13/21 11/13/21 11/13/21 13:45 13:45 13:45 WBC 14.1 H RBC 5.17 Hgb 12.7 L Hct 38.9 L MCV 75.2 L MCH 24.6 L MCHC 32.6 RDW Std Deviation 46.4 H RDW Coeff of Bhavin 17.2 H Plt Count 168 MPV 9.0 Immature Gran % (Auto) 0.600 Neut % (Auto) 87.2 H Lymph % (Auto) 6.3 L [place] % (Auto) 5.7 Eos % (Auto) 0.1 Baso % (Auto) 0.1 Absolute Neuts (auto) 12.3 H Absolute Lymphs (auto) 0.88 Nucleated RBC % 0 PT 14.8 INR 1.2 APTT 27.6 Sodium 133 L Potassium 3.5 Chloride 97 L Carbon Dioxide 27.0 Anion Gap 9 BUN 21 H Creatinine 1.30 Estim Creat Clear Calc 55.37 Est GFR (MDRD) Af Amer 70 Est GFR (MDRD) Non-Af 58 L BUN/Creatinine Ratio 16.2 Glucose 251 H Lactic Acid Calcium 8.4 L Total Bilirubin 0.70 AST 17 ALT 29 Alkaline Phosphatase 62 Total Protein 7.3 Albumin 3.3 Globulin 4.0 Albumin/Globulin Ratio 0.8 L Urine Color Urine Clarity Urine pH Ur Specific [place] Urine Protein Urine Glucose (UA) Urine Ketones Urine Occult Blood Urine Nitrite Urine Bilirubin Urine Urobilinogen Ur Leukocyte Esterase Urine RBC Urine WBC Ur Squamous Epith Cells Urine Bacteria Urine Mucus 11/13/21 11/13/21 13:45 15:45 WBC RBC Hgb Hct MCV MCH MCHC RDW Std Deviation RDW Coeff of Bhavin Plt Count MPV Immature Gran % (Auto) Neut % (Auto) Lymph % (Auto) [place] % (Auto) Eos % (Auto) Baso % (Auto) Absolute Neuts (auto) Absolute Lymphs (auto) Nucleated RBC % PT INR APTT Sodium Potassium Chloride Carbon Dioxide Anion Gap BUN Creatinine Estim Creat Clear Calc Est GFR (MDRD) Af Amer Est GFR (MDRD) Non-Af BUN/Creatinine Ratio Glucose Lactic Acid 2.6 H* Calcium Total Bilirubin AST ALT Alkaline Phosphatase Total Protein Albumin Globulin Albumin/Globulin Ratio Urine Color Yellow Urine Clarity Cloudy Urine pH 6.0 Ur Specific [place] 1.015 Urine Protein 100 H Urine Glucose (UA) Normal Urine Ketones 15 H Urine Occult Blood 250 H Urine Nitrite Positive H Urine Bilirubin Negative Urine Urobilinogen Normal Ur Leukocyte Esterase 500 H Urine RBC 5-10 SEEN Urine WBC 25-50 SEEN Ur Squamous Epith Cells 0-5 SEEN Urine Bacteria 3+ Urine Mucus 0 SEEN Radiography Diagnostic Testing: Clinical Impression(s) from Imaging Studies Chest X-Ray 11/13/21 13:33 IMPRESSION: Normal x-ray examination of the chest. Electronically Signed: Anuel Kimball MD at 15:20 EDT , Abdomen/Pelvis CT 11/13/21 15:38 IMPRESSION: Suspect right pyelonephritis. Electronically Signed: Anuel Kimball MD at 17:26 EDT , Discharge Plan Triage Chief Complaint: Fever ED Provider: Jessica Bray Dx/Rx/DC Orders Primary Care Provider: Sachin Dominguez Chi
--- NOTE | 2021-11-13 13:55 | NURSING ---
NO OLD EKGS
[2021-11-13 13:58] LABS: Absolute Lymphocyte Count 0.88 X10^3/uL (0.83-4.51); Absolute Neutrophil Count 12.3 X10^3/uL (2.0-7.7); Basophil# 0.02 X10^3/uL; Basophil% 0.1 % (0-1); Eosinophil# 0.01 X10^3/uL; Eosinophils% 0.1 % (0-5); Hematocrit 38.9 % (40-54); Hemoglobin 12.7 g/dL (13.0-16.5); Lymphocyte # 0.88 X10^3/ul (0.83-4.51); Lymphocyte % 6.3 % (19-41); Mean Corp Hgb Conc 32.6 g/dL (32-36); Mean Corpuscular Hgb 24.6 pg (27.0-32.0); Mean Corpuscular Volume 75.2 fL (80-94); Monocyte% 5.7 % (0-10); NRBC Flagged by Analyzer 0 % (0-5); Neutrophil # 12.28 X10^3/uL (2.7-7.7); Neutrophil % 87.2 % (47-70); Platelet Count 168 K/mm3 (150-450); RBC Distribution Width CV 17.2 % (11.6-14.6); RBC Distribution Width SD 46.4 fl (35.1-43.9); Red Blood Count 5.17 M/mm3 (4.6-6.2); White Blood Count 14.1 K/mm3 (4.4-11.0)
[2021-11-13 14:06] LABS: International Normalized Ratio 1.2; Prothrombin Time (Protime)PT. 14.8 SECONDS (11.7-14.9)
[2021-11-13 14:07] LABS: Partial Thromboplast Time 27.6 Seconds (24.1-36.2)
[2021-11-13 14:14] LABS: ALB/GLOB Ratio 0.8 RATIO (0.9-2.4); AST(SGOT) 17 U/L (15-37); Alanine Aminotransfer ALT/SGPT 29 U/L (16-61); Albumin, Serum 3.3 g/dL (3.2-5.0); Alkaline Phosphatase 62 U/L (45-117); Anion Gap 9 (5-15); BUN 21 mg/dL (7-18); BUN/Creat Ratio 16.2 RATIO (10-20); Calcium,Total 8.4 mg/dL (8.5-10.1); Chloride 97 mmol/L (98-107); EST Glomerular Filtration Rate 58 mL/min (>60); Est Glom Filt Rate - Afr Amer 70 mL/min (>60); Estimated Creatinine Clearance 55.37 ml/min; Glucose 251 mg/dL (74-106); Potassium 3.5 mmol/L (3.5-5.1); Protein, Total 7.3 g/dL (6.4-8.2); Sodium Level 133 mmol/L (136-145)
[2021-11-13 14:46] LABS: Lactic Acid 2.6 mmol/L (0.4-1.9)
[2021-11-13] MEDS: Ketorolac 15 MG/ML Vial IV (15:37)
--- NOTE | 2021-11-13 15:38 | CT_ITS ---
STUDY: CT ABDOMEN AND PELVIS WITH CONTRAST REASON FOR EXAM: Male, 71 years old. abdominal pain RADIATION DOSAGE (If Supplied By Facility): CTDIvol = ( 16.83 ) mGy, DLP = ( 1289.38 ) mGycm TECHNIQUE: Transaxial images were obtained from the dome of the diaphragm to the symphysis pubis without oral contrast. IV 100mL Isovue-300 was administered. Sagittal and coronal images were reconstructed. Individualized dose optimization techniques were used for this CT. COMPARISON: None. FINDINGS: The visualized lung bases are unremarkable. The visualized portions of the heart are within normal limits. Normal liver. Normal gallbladder and extrahepatic biliary system. Normal spleen. Normal pancreas. Normal bilateral adrenal glands. Stranding of the fat surrounding the right kidney may represent pyelonephritis. Normal left kidney. Multiple bilateral renal cysts. Normal visualized stomach. Normal small intestine. Normal colon. There is non-visualization of the appendix. Normal abdominal aorta. Normal inferior vena cava. Normal retroperitoneum. Suprapubic catheter within the collapsed bladder. Normal abdominal wall. Normal osseous structures. CT/Abdomen/Pelvis W IV Cont ONLY IMPRESSION: Suspect right pyelonephritis. Electronically Signed: nAuel Kimball MD at 17:26 EDT ,
[2021-11-13 15:53] LABS: Mucous, Urine 0 SEEN /hpf (<or=2+)
[2021-11-13 15:57] LABS: Color, Urine Yellow (Yellow); Glucose, Dipstick Normal (Normal); Ketone-Dipstick 15 mg/dl (Negative); Leukocyte Esterase-Dipstick 500 /ul (Negative); Nitrite-Dipstick Positive (Negative); Occult Blood-Urine 250 /ul (Negative); Protein-Dipstick 100 mg/dl (Negative); Specific Gravity, Urine 1.015 (1.002-1.030); Urine Bilirubin Dipstick Negative (Negative); Urine Clarity Cloudy (Clear); Urine Urobilinogen Normal (Normal)
[2021-11-13 16:05] LABS: Bacteria 3+ /hpf (None Seen); Red Blood Cells-Urine 5-10 SEEN /hpf (0-5); Squamous Epithelial Cells - UA 0-5 SEEN /hpf (0-5); White Blood Cells 25-50 SEEN /hpf (0-5)
[2021-11-13] MEDS: Ceftriaxone 1 GM/50 ML BAG IV (16:44)
--- NOTE | 2021-11-13 17:36 | NURSING ---
DR DELL NEWMAN
--- NOTE | 2021-11-13 17:45 | NURSING ---
PCU [facility] COMPLICATED UTI
--- NOTE | 2021-11-13 17:51 | HP.PCM.HOS_ITS ---
Documented by User: Quintin JARQUIN 11/13/21 18:09 HPI - General General Date of Admission: 11/13/21 Date of Service: 11/13/21 Chief Complaint: Fever HPI Narrative SIENA SALAMANCA is a 71-year-old male who presents to the ED at [facility] on 11/13/2021 with a chief complaint of fevers. Patient reports that he has had fever for the past 3 days, for which he has been taking Tylenol that has been helping with his subjective fevers. Patient does also report nausea and dry heaving, but denies diarrhea. Patient does report chronic abdominal pain and constipation secondary to his radiation from his prostate cancer. Patient does have right-sided flank pain. Patient does follow with Dr. Patel. Past medical history is significant for HTN, HLD, DM2, COPD, HAN and prostate cancer. Vital signs in the ED are temperature of 104.2, BP of 185/65, HR of 87, RR of 18 and patient is satting 92% on room air. CBC does show an elevated white count at 14.1, hemoglobin is 12.7 and platelets are 168. BMP shows sodium at 133 and elevated lactate at 2.6. UA does demonstrate yellow cloudy urine with positive nitrites, 500 leukocyte esterase, 25-50 urine WBCs and 3+ bacteria. CT of the abdomen pelvis demonstrates stranding of the fat surrounding the right kidney which is consistent with right pyelonephritis. Patient was given fluids, Tylenol and initiated on Rocephin in the ED. [facility] Medical History Bladder disease Bruising Cancer COPD (chronic obstructive pulmonary disease) CPAP (continuous positive airway pressure) dependence Depression Diabetes Dietary restriction Former smoker High cholesterol History of cataract History of diverticulitis History of edema History of stress test Hypertension Indwelling urethral catheter present Insulin dependent diabetes mellitus Prostate disease Restless legs Shortness of breath on exertion Sleep apnea Wears glasses Wears hearing aid Home Medications Breo Ellipta 1 puff INHALATION DAILY 05/31/17 [History Last Taken 05/05/21] Lantus Solostar U-100 Insulin 80 unit SUBCUT BID 05/31/17 [History Last Taken 05/05/21 40] albuterol sulfate [ProAir HFA] 1 puff INHALATION Q6H PRN PRN 05/31/17 [History Last Taken Unknown] hydrochlorothiazide 25 mg PO DAILY 05/31/17 [History Last Taken Unknown] insulin lispro [Humalog KwikPen Insulin] 70 units SUBCUT TID 05/31/17 [History Last Taken Unknown] lisinopril 20 mg PO BID 05/31/17 [History Last Taken Unknown] metformin 1,000 mg PO BID 05/31/17 [History Last Taken Unknown] simvastatin 40 mg PO QHS 05/31/17 [History Last Taken Unknown] aspirin 81 mg PO DAILY 09/19/17 [History Last Taken Unknown] pramipexole [Mirapex] 1 mg PO QHS 09/19/17 [History Last Taken Unknown] citalopram 20 mg PO DAILY 11/13/21 [History Last Taken Unknown] plecanatide [Trulance] 3 mg PO DAILY 11/13/21 [History Last Taken Unknown] primidone 100 mg PO QHS 11/13/21 [History Last Taken Unknown] solifenacin 10 mg PO DAILY 11/13/21 [History Last Taken Unknown] Allergy/AdvReac Type Severity Reaction Status Date / Time No Known Allergies Allergy Verified 05/05/21 08:45 Family History (Updated 11/13/21 @ 17:56 by Quintin JARQUIN) Father Diabetes Mother Heart disease Surgical History History of eye surgery History of implantation of artificial sphincter Social History (Updated 11/13/21 @ 17:56 by Quintin JARQUIN) Smoking Status: Former smoker Tobacco: How many years used: 20 how long ago did patient quit smokin years ago, was smoking two packs per day. alcohol intake: former ROS Constitutional Constitutional: Reports fever(s) and weakness; Denies anorexia, change in weight, chills, fatigue, malaise, night sweats or other Eyes Eyes: Denies blurry vision, change in eye color, change in vision, discharge from eye(s), double vision, erythema, eye pain, loss of vision or other ENT HEENT: Denies abnormal hearing, dysphagia, ear pain, epistaxis, headache(s), hearing loss, nasal congestion, nasal discharge, post nasal drip, sinus pressure, sore throat or other Cardiovascular Cardiovascular: Denies chest pain, claudication, dyspnea on exertion, edema, lightheadedness, orthopnea, palpitations, paroxysmal nocturnal dyspnea, rapid heart rate, syncope or other Respiratory/Chest Respiratory/Chest: Denies cough, dyspnea, excessive phlegm production, hemoptysis, productive cough, shortness of breath at rest, shortness of breath with exertion, wheezing or other Gastrointestinal Gastrointestinal: Reports abdominal pain and nausea; Denies coffee ground emesis, constipation, diarrhea, dyspepsia, hematemesis, hematochezia, loose stools, melena, vomiting or other Genitourinary Genitourinary: Reports urinary incontinence; Denies burning urination, diff iculty urinating, dysuria, hematuria, nocturia, urinary frequency, urinary hesitancy, urinary urgency or other Musculoskeletal Musculoskeletal: Denies arthralgias, back pain, joint pain, joint stiffness, joint swelling, myalgias, neck pain or other Neurologic Neurologic: Denies abnormal gait, abnormal speech, confusion, disequilibrium, dizziness, focal weakness, headache(s), numbness, paresthesias, seizure-like activity, seizures, syncope, tingling, tremor(s) or other Psychiatric Psychiatric: Denies anxiety, depression, homicidal ideation, suicidal ideation or other Endocrine Endocrinology: Denies change in body appearance, cold intolerance, excessive sweating, heat intolerance, polydipsia, polyuria or other Hematologic/Lymphatic Hematologic/Lymphatic: Denies anemia, easy bleeding, easy bruising, lymphadenopathy or other Allergic/Immunologic Allergic/Immunologic: Denies rhinitis, hives, eczemia, asthma or other Vital Signs Vital Signs Vital Signs: 11/13/21 13:28 11/13/21 13:51 11/13/21 13:59 Temperature 104.2 F H 100.3 F H Temperature Source Tympanic Oral Pulse Rate 87 87 Respiratory Rate 18 22 H Respiratory Effort Normal Respiratory Pattern Normal Blood Pressure 185/65 H 185/65 H Blood Pressure Mean 105 105 Pulse Ox 92 83 Oxygen Delivery Method Room Air Nasal Cannula Oxygen Flow Rate (L/min) 3 11/13/21 14:01 11/13/21 15:11 11/13/21 15:31 Temperature 103.1 F H 103 F H Temperature Source Oral Oral Pulse Rate 79 Respiratory Rate 15 Respiratory Effort Respiratory Pattern Blood Pressure 151/59 H Blood Pressure Mean 89 Pulse Ox 92 96 Oxygen Delivery Method Nasal Cannula Nasal Cannula Oxygen Flow Rate (L/min) 3 3 11/13/21 16:45 11/13/21 16:46 11/13/21 17:00 Temperature 100.3 F H 100.3 F H 99.4 F H Temperature Source Oral Oral Oral Pulse Rate 77 75 Respiratory Rate 18 15 Respiratory Effort Respiratory Pattern Blood Pressure 126/48 H 130/57 H Blood Pressure Mean 74 81 Pulse Ox 96 96 Oxygen Delivery Method Nasal Cannula Nasal Cannula Oxygen Flow Rate (L/min) 3 2 11/13/21 17:38 Temperature 99.4 F H Temperature Source Oral Pulse Rate 75 Respiratory Rate 15 Respiratory Effort Respiratory Pattern Blood Pressure 130/57 H Blood Pressure Mean 81 Pulse Ox 96 Oxygen Delivery Method Nasal Cannula Oxygen Flow Rate (L/min) 2 Weight Weight: 300 lb Body Mass Index (BMI) 43.0 Physical Exam Const alert and oriented x3 General Appearance: cooperative HEENT normocephalic, head/scalp atraumatic and hearing grossly normal bilaterally Eyes PERRL and conjunctivae normal Neck no lymphadenopathy, supple and no JVD Resp normal respiratory effort, no retractions and no use of accessory muscles Cardio regular rate, regular rhythm and no JVD GI GI Narrative: Patient with intact suprapubic catheter. Extremity normal to inspection Skin Skin Narrative: Patient has scab on the right anterior lehman, no purulence or erythema noted. Neuro CN's II-XII intact bilaterally Psych affect normal Results Lab / Micro Data Result Diagrams: 11/13/21 13:45 11/13/21 13:45 Labs: Laboratory Results - last 24 hr 11/13/21 13:45: WBC 14.1 H, RBC 5.17, Hgb 12.7 L, Hct 38.9 L, MCV 75.2 L, MCH 24.6 L, MCHC 32.6, RDW Std Deviation 46.4 H, RDW Coeff of Bhavin 17.2 H, Plt Count 168, MPV 9.0, Immature Gran % (Auto) 0.600, Neut % (Auto) 87.2 H, Lymph % (Auto) 6.3 L, [place] % (Auto) 5.7, Eos % (Auto) 0.1, Baso % (Auto) 0.1, Absolute Neuts (auto) 12.3 H, Absolute Lymphs (auto) 0.88, Nucleated RBC % 0 11/13/21 13:45: PT 14.8, INR 1.2, APTT 27.6 04/16/22 13:45: Sodium 133 L, Potassium 3.5, Chloride 97 L, Carbon Dioxide 27.0, Anion Gap 9, BUN 21 H, Creatinine 1.30, Estim Creat Clear Calc 55.37, Est GFR (MDRD) Af Amer 70, Est GFR (MDRD) Non-Af 58 L, BUN/Creatinine Ratio 16.2, Glucose 251 H, Calcium 8.4 L, Total Bilirubin 0.70, AST 17, ALT 29, Alkaline Cady sphatase 62, Total Protein 7.3, Albumin 3.3, Globulin 4.0, Albumin/Globulin Ratio 0.8 L 11/13/21 13:45: Lactic Acid 2.6 H* 11/13/21 15:45: Urine Color Yellow, Urine Clarity Cloudy, Urine pH 6.0, Ur Specific [place] 1.015, Urine Protein 100 H, Urine Glucose (UA) Normal, Urine Ketones 15 H, Urine Occult Blood 250 H, Urine Nitrite Positive H, Urine Bilirubin Negative, Urine Urobilinogen Normal, Ur Leukocyte Esterase 500 H, Urine RBC 5-10 SEEN, Urine WBC 25-50 SEEN, Ur Squamous Epith Cells 0-5 SEEN, Urine Bacteria 3+, Urine Mucus 0 SEEN Micro: Microbiology 11/13/21 13:40 Nasal Secretion SARS-CoV-2 & FLU Antigen (Rapid) - Final Radiology Impression Chest X-Ray 11/13/21 13:33 IMPRESSION: Normal x-ray examination of the chest. Electronically Signed: Anuel Kimball MD at 15:20 EDT Reading Location ID and State: [id number] / [employer] Tel , Service support , Abdomen/Pelvis CT 11/13/21 15:38 IMPRESSION: Suspect right pyelonephritis. Electronically Signed: Anuel Kimball MD at 17:26 EDT , Assessment & Plan Assessment/Plan (1) Pyelonephritis: (2) Sepsis: PLAN: Patient is a 71-year-old male who presents to the ED at [facility] on 11/13/2021 for evaluation and management of fever. Patient will be admitted for management of acute pyelonephritis. 1) acute pyelonephritis Patient with 3-day history of fevers, nausea and dry heaving as well as right flank pain. Patient does have a indwelling suprapubic catheter, and does follow with Dr. Mcdonough. UA demonstrates yellow cloudy urine with positive nitrites, 500 leukocyte esterase, 25-50 urine WBCs and 3+ bacteria. CT of the abdomen/pelvis is consistent with right pyelonephritis. Prior urine culture from March 2021 demonstrated Enterococcus facialis that was pansensitive. Plan; admit to [facility], continue Rocephin, IV fluids, blood and urine cultures ordered, CBC and CMP in a.m., PT/OT eval ordered, case management consult ordered. 2) sepsis Secondary to #1. Patient does meet SIRS criteria for sepsis with a fever, and elevated white count, confirm source of infection as well as an elevated lactate at 2.6. qSOFA 0. Plan as above. 3) indwelling suprapubic catheter Appears intact. No purulent drainage, erythema or pain to palpation noted around catheter. Complicates #1. 4) history COPD Not in acute exacerbation. Continue bronchodilators. 5) DM2 Continue home insulin regimen, Accu-Cheks assigned scale insulin ordered, hold home Metformin given lactic acidosis. 6) HTN Continue lisinopril and hydrochlorothiazide. 7) hyperlipidemia Continue statin. 8) depression/anxiety Continue citalopram. DVT prophylaxis - Lovenox CODE STATUS: Full code. Patient seen by Quintin Martínez PA-C, under the supervision of Dr. Ontiveros. Time spent on patient care: 25 minutes. Documented by User: Dr. Katie Ontiveros MD 11/13/21 18:33 HPI - General General Date of Admission: 11/13/21 [facility] Medical History Bladder disease Bruising Cancer COPD (chronic obstructive pulmonary disease) CPAP (continuous positive airway pressure) dependence Depression Diabetes Dietary restriction Former smoker High cholesterol History of cataract History of diverticulitis History of edema History of stress test Hypertension Indwelling urethral catheter present Insulin dependent diabetes mellitus Prostate disease Restless legs Shortness of breath on exertion Sleep apnea Wears glasses Wears hearing aid Home Medications Breo Ellipta 1 puff INHALATION DAILY 05/31/17 [History Last Taken 05/05/21] Lantus Solostar U-100 Insulin 80 unit SUBCUT BID 05/31/17 [History Last Taken 05/05/21 40] albuterol sulfate [ProAir HFA] 1 puff INHALATION Q6H PRN PRN 05/31/17 [History Last Taken Unknown] hydrochlorothiazide 25 mg PO DAILY 05/31/17 [History Last Taken Unknown] insulin lispro [Humalog KwikPen Insulin] 70 units SUBCUT TID 05/31/17 [History Last Taken Unknown] lisinopril 20 mg PO BID 05/31/17 [History Last Taken Unknown] metformin 1,000 mg PO BID 05/31/17 [History Last Taken Unknown] simvastatin 40 mg PO QHS 05/31/17 [History Last Taken Unknown] aspirin 81 mg PO DAILY 09/19/17 [History Last Taken Unknown] pramipexole [Mirapex] 1 mg PO QHS 09/19/17 [History Last Taken Unknown] citalopram 20 mg PO DAILY 11/13/21 [History Last Taken Unknown] plecanatide [Trulance] 3 mg PO DAILY 11/13/21 [History Last Taken Unknown] primidone 100 mg PO QHS 11/13/21 [History Last Taken Unknown] solifenacin 10 mg PO DAILY 11/13/21 [History Last Taken Unknown] Allergy/AdvReac Type Severity Reaction Status Date / Time No Known Allergies Allergy Verified 05/05/21 08:45 Family History (Updated 11/13/21 @ 17:56 by Quintin JARQUIN) Father Diabetes Mother Heart disease Surgical History History of eye surgery History of implantation of artificial sphincter Social History (Updated 11/13/21 @ 17:56 by Quintin JARQUIN) Smoking Status: Former smoker Tobacco: How many years used: 20 how long ago did patient quit smokin years ago, was smoking two packs per day. alcohol intake: former Results Lab / Micro Data Result Diagrams: 11/13/21 13:45 11/13/21 13:45 Charges/Coding Addendum Addendum: This patient was seen in conjunction with MILKA Dahl. I have independently interviewed and examined the patient and reviewed pertinent historical, laboratory, and other data. Please refer to MILKA Dahl's note for his patient's presentation, findings, and recommendations. I have reviewed and his note and concur with his documentation 71-year-old with past medical history of prostate CA status post radiation therapy, status post suprapubic catheter, history of recurrent UTI, comes in with fever, chills, generalized weakness ongoing for about 3 days. Patient has noticed that the urine in his urine bag has been cloudy. He is always had discharge from his suprapubic abscess. He started having fevers and feeling unwell 3 days prior. Denied any chest pain no dizziness or palpitations or nausea or vomiting. He had a fever 105F at home prior to coming to the ED Vitals in the ED showed blood pressure 185/65, temperature 104.2F, heart rate 87, respiratory 18, SPO2 is 92% on room air. His WBC count was 14.1, hemoglobin 12.7, platelet count 168. INR is 1.2. Sodium 133, potassium 3.4, chloride 97, BUN 27, creatinine 1.3, baseline creatinine is around 1.1 Chest x-ray was unremarkable. CT abdomen and pelvis showed stranding of fat around the right kidney Physical Exam: Gen: Looks in some discomfort, not pale, not jaundiced CVS:HS I +II, regular, no murmurs RESP: Diminished at lung bases GI: BS present and normal, soft, nontender, no palpable organs EXT:No edema ASSESSMENT: 1. Severe sepsis secondary to acute right pyelonephritis secondary to suprapubic catheter 2. Type II DM 3. Hypertension 4. Hyperlipidemia 5. Prostate CA status post radiation Plan: Admit to PCU, IV fluids, IV ceftriaxone Follow-up on blood and urine cultures Continue home medications Hold Metformin Blood glucose checks with insulin sliding scale Time spent taking history, physical examined patient, coordinating all of patient's care, discussing with nursing, discussing with ED physician, answering questions at bedside: 25 minutes I discussed and explained in details the various types of CODE STATUS-full code, DNR CCA, DNR CC. Patient chose to be full code and wants everything done to keep him alive. Time spent discussing CODE STATUS 16 minutes Visit Charges Inpatient E&M: 25506 Init Hosp L3 Procedures Hospitalists Procedures: 63966 Advncd Care Plan 30 Min
[2021-11-13 17:52] LABS: Reflex Lactate? Y
[2021-11-13 18:51] LABS: Lactic Acid 1.9 mmol/L (0.4-1.9)
[2021-11-13] MEDS: 0.9% Normal Saline 1,000 ML 150 ML IV (19:00)
[2021-11-13] MEDS: Albuterol 2.5 MG/3 ML VIAL.NEB. INHALATION (19:27)
[2021-11-13] MEDS: Budesonide Respules 0.5 MG/2 ML AMPUL.NEB. INHALATION (19:27)
[2021-11-13] MEDS: Lisinopril 20 MG Tablet PO (21:28)
[2021-11-13] MEDS: Atorvastatin Calcium 20 MG Tablet PO (21:29)
[2021-11-13] MEDS: Pramipexole Di-HCl 1 MG Tablet PO (21:29)
[2021-11-13] MEDS: Acetaminophen 325 MG Tablet 650 MG PO (21:29)
[2021-11-13] MEDS: Primidone 50 MG Tablet 100 MG PO (21:29)
[2021-11-13] MEDS: Insulin Lispro 100 UNIT/ML INSULN.PEN SC (21:34)
[2021-11-13] MEDS: Insulin Glargine-YFGN 100 UNIT/ML Pen 80 UNIT SC (21:34)
[2021-11-13 22:46] LABS: Bedside Glucose 171 mg/dL (74-106)
[2021-11-14] VITALS (14 sets, daily range): BP systolic 116–162; BP diastolic 51–56; PULSE 69–88; RESP 18–24; TEMP 36.3–38.9; O2SAT 95–100
[2021-11-14] MEDS: Ondansetron 4 MG/2 ML Vial IV (01:14)
[2021-11-14] MEDS: 0.9% Normal Saline 1,000 ML 150 ML IV ×2 (01:14→08:37)
[2021-11-14] MEDS: Ibuprofen 400 MG Tablet PO ×2 (03:26→21:06)
[2021-11-14] MEDS: Enoxaparin 40 MG/0.4 ML Syringe SC (05:34)
[2021-11-14] MEDS: Acetaminophen 325 MG Tablet 650 MG PO ×2 (05:34→19:02)
[2021-11-14] MEDS: Albuterol 2.5 MG/3 ML VIAL.NEB. INHALATION ×4 (08:33→20:18)
[2021-11-14] MEDS: hydroCHLOROthiazide 25 MG Tablet PO (08:34)
[2021-11-14] MEDS: Aspirin E.C. 81 MG Tablet PO (08:34)
[2021-11-14] MEDS: Budesonide Respules 0.5 MG/2 ML AMPUL.NEB. INHALATION ×2 (08:34→20:18)
[2021-11-14] MEDS: Citalopram 20 MG Tablet PO (08:34)
[2021-11-14] MEDS: Lisinopril 20 MG Tablet PO ×2 (08:34→21:03)
[2021-11-14] MEDS: Tolterodine Tartrate 4 MG CAP.SA PO (08:34)
[2021-11-14] MEDS: Insulin Lispro 100 UNIT/ML INSULN.PEN SC ×4 (08:35→20:59)
[2021-11-14] MEDS: Insulin Lispro 100 UNIT/ML INSULN.PEN 10 UNIT SC (08:36)
[2021-11-14] MEDS: Insulin Glargine-YFGN 100 UNIT/ML Pen 80 UNIT SC (08:40)
[2021-11-14 08:51] LABS: Bedside Glucose 180 mg/dL (74-106)
[2021-11-14 09:47] LABS: Absolute Lymphocyte Count 0.89 X10^3/uL (0.83-4.51); Absolute Neutrophil Count 12.1 X10^3/uL (2.0-7.7); Basophil# 0.02 X10^3/uL; Basophil% 0.1 % (0-1); Hematocrit 35.5 % (40-54); Hemoglobin 11.2 g/dL (13.0-16.5); Lymphocyte # 0.89 X10^3/ul (0.83-4.51); Lymphocyte % 6.5 % (19-41); Mean Corp Hgb Conc 31.5 g/dL (32-36); Mean Corpuscular Hgb 24.2 pg (27.0-32.0); Mean Corpuscular Volume 76.7 fL (80-94); Mean Platelet Vol. 9.7 fl (6.2-12.0); Monocyte# 0.76 X10^3/uL; Monocyte% 5.5 % (0-10); NRBC Flagged by Analyzer 0 % (0-5); Neutrophil # 12.05 X10^3/uL (2.7-7.7); Neutrophil % 87.4 % (47-70); Platelet Count 156 K/mm3 (150-450); RBC Distribution Width CV 17.5 % (11.6-14.6); RBC Distribution Width SD 48.6 fl (35.1-43.9); Red Blood Count 4.63 M/mm3 (4.6-6.2); White Blood Count 13.8 K/mm3 (4.4-11.0)
[2021-11-14 09:59] LABS: Anion Gap 8 (5-15); BUN 21 mg/dL (7-18); BUN/Creat Ratio 17.1 RATIO (10-20); Calcium,Total 7.7 mg/dL (8.5-10.1); Chloride 103 mmol/L (98-107); Creatinine, Serum 1.23 mg/dL (0.70-1.30); EST Glomerular Filtration Rate 62 mL/min (>60); Est Glom Filt Rate - Afr Amer 75 mL/min (>60); Estimated Creatinine Clearance 58.53 ml/min; Glucose 180 mg/dL (74-106); Potassium 3.1 mmol/L (3.5-5.1); Sodium Level 137 mmol/L (136-145)
[2021-11-14] MEDS: Ceftriaxone 1 GM/50 ML BAG IV (10:04)
--- NOTE | 2021-11-14 10:59 | PN.HOSP_ITS ---
Documented by User: Quintin JARQUIN 11/14/21 11:07 Subjective Subjective Patient is a 71-year-old male comfortably resting in bed, alert and orient x3. Patient reports improvement in his subjective fevers, denies development of any new symptoms overnight. Does not appear in acute distress. Objective Data Objective Data Vital Signs: Vital Signs Temp Pulse Resp BP Pulse Ox 97.7 F L 69 20 H 116/54 L 96 11/14/21 08:10 11/14/21 08:35 11/14/21 08:35 11/14/21 08:10 11/14/21 08:50 Oxygen Flow Rate (L/min) 2 Oxygen Delivery Method Nasal Cannula Weight: 299 lb 9.731 oz Body Mass Index (BMI) 43.0 Intake & Output: Intake and Output for Last 24 Hours 11/12/21 11/13/21 11/14/21 23:59 23:59 23:59 Intake Total 2410 / 2410 2295 / 2295 Output Total 125 / 375 525 / 525 Balance 2285 / 2035 1770 / 1770 Lab / Micro Data Result Diagrams: 11/14/21 09:40 11/14/21 09:40 Labs: Laboratory Results - last 24 hr 11/13/21 13:45: WBC 14.1 H, RBC 5.17, Hgb 12.7 L, Hct 38.9 L, MCV 75.2 L, MCH 24.6 L, MCHC 32.6, RDW Std Deviation 46.4 H, RDW Coeff of Bhavin 17.2 H, Plt Count 168, MPV 9.0, Immature Gran % (Auto) 0.600, Neut % (Auto) 87.2 H, Lymph % (Auto) 6.3 L, [place] % (Auto) 5.7, Eos % (Auto) 0.1, Baso % (Auto) 0.1, Absolute Neuts (auto) 12.3 H, Absolute Lymphs (auto) 0.88, Nucleated RBC % 0 11/13/21 13:45: PT 14.8, INR 1.2, APTT 27.6 11/13/21 13:45: Sodium 133 L, Potassium 3.5, Chloride 97 L, Carbon Dioxide 27.0, Anion Gap 9, BUN 21 H, Creatinine 1.30, Estim Creat Clear Calc 55.37, Est GFR (MDRD) Af Amer 70, Est GFR (MDRD) Non-Af 58 L, BUN/Creatinine Ratio 16.2, Glucose 251 H, Calcium 8.4 L, Total Bilirubin 0.70, AST 17, ALT 29, Alkaline Phosphatase 62, Total Protein 7.3, Albumin 3.3, Globulin 4.0, Albumin/Globulin Ratio 0.8 L 11/13/21 13:45: Lactic Acid 2.6 H* 11/13/21 15:45: Urine Color Yellow, Urine Clarity Cloudy, Urine pH 6.0, Ur Specific [place] 1.015, Urine Protein 100 H, Urine Glucose (UA) Normal, Urine Ketones 15 H, Urine Occult Blood 250 H, Urine Nitrite Positive H, Urine Bilirubin Negative, Urine Urobilinogen Normal, Ur Leukocyte Esterase 500 H, Urine RBC 5-10 SEEN, Urine WBC 25-50 SEEN, Ur Squamous Epith Cells 0-5 SEEN, Urine Bacteria 3+, Urine Mucus 0 SEEN 11/13/21 18:17: Lactic Acid 1.9 11/13/21 21:27: POC Glucose 171 H 11/14/21 08:12: POC Glucose 180 H 11/14/21 09:40: WBC 13.8 H, RBC 4.63, Hgb 11.2 L, Hct 35.5 L, MCV 76.7 L, MCH 24.2 L, MCHC 31.5 L, RDW Std Deviation 48.6 H, RDW Coeff of Bhavin 17.5 H, Plt Count 156, MPV 9.7, Immature Gran % (Auto) 0.500, Neut % (Auto) 87.4 H, Lymph % (Auto) 6.5 L, [place] % (Auto) 5.5, Eos % (Auto) 0.0, Baso % (Auto) 0.1, Absolute Neuts (auto) 12.1 H, Absolute Lymphs (auto) 0.89, Nucleated RBC % 0 11/14/21 09:40: Sodium 137, Potassium 3.1 L, Chloride 103, Carbon Dioxide 26.0, Anion Gap 8, BUN 21 H, Creatinine 1.23, Estim Creat Clear Calc 58.53, Est GFR (MDRD) Af Amer 75, Est GFR (MDRD) Non-Af 62, BUN/Creatinine Ratio 17.1, Glucose 180 H, Calcium 7.7 L Micro: Microbiology 11/13/21 15:45 Urine, Clean Catch Urine Culture - Preliminary Gram negative denise 11/13/21 14:34 Blood Culture (Wb) - Right Wrist Blood Culture - Preliminary 11/13/21 13:40 Nasal Secretion SARS-CoV-2 & FLU Antigen (Rapid) - Final Radiography Diagnostic Testing: Radiology Impression Chest X-Ray 11/13/21 13:33 IMPRESSION: Normal x-ray examination of the chest. Electronically Signed: Anuel Kimball MD at 15:20 EDT Reading Location ID and State: [employer] / [employer] Tel , Service support , Abdomen/Pelvis CT 11/13/21 15:38 IMPRESSION: Suspect right pyelonephritis. Electronically Signed: Anuel Kimball MD at 17:26 EDT Reading Location ID and State: [employer] Tel , Service support , Physical Exam Const alert, oriented x3 and no apparent distress HEENT head/scalp atraumatic and moist oral mucous membranes Head and Scalp: normocephalic Eyes PERRL and conjunctivae normal Neck no lymphadenopathy, supple and no JVD Resp normal respiratory effort, no retractions and no use of accessory muscles Cardio regular rate, regular rhythm and no JVD GI normal to inspection, nondistended, normoactive bowel sounds Extremity normal to inspection Skin Skin Narrative: Scab on the anterior lehman of the right lower extremity. No purulence, erythema or tenderness noted. Neuro CN's II-XII intact bilaterally Psych affect normal Assessment & Plan Assessment/Plan (1) Pyelonephritis: (2) Sepsis: PLAN: Day 1 Discharge planning: Current plan is for patient to discharge home when medically ready. 1) acute pyelonephritis White count mildly improved from admission, currently 13.8. Urine cultures preliminarily grew gram-negative rods. Indwelling suprapubic catheter appears intact and is draining well. We will continue Rocephin, IV fluids and de- escalate based off of sensitivities. 2) sepsis Resolved. Secondary to #1. Patient no longer meets SIRS criteria for sepsis as fever and lactic acidosis have resolved. Patient still with elevated white count as above. qSOFA still 0. Plan as above. 3) hypokalemia Potassium currently 3.1, replaced we will continue to trend BMP. 4) history COPD Not in acute exacerbation. Continue bronchodilators. 5) DM2 Continue home insulin regimen, Accu-Cheks assigned scale insulin ordered, hold home Metformin given lactic acidosis. 6) HTN Continue lisinopril and hydrochlorothiazide. 7) hyperlipidemia Continue statin. 8) depression/anxiety Continue citalopram. 9) Hx of Prostate CA s/p radiation with indwelling suprapubic catheter Appears intact. No purulent drainage, erythema or pain to palpation noted around catheter. Complicates #1. DVT prophylaxis - Lovenox Patient seen by Quintin Martínez PA-C, under the supervision of Dr. Ontiveros. Time spent on patient care: 10 minutes. Documented by User: Dr. Katie Ontiveros MD 11/14/21 13:28 Objective Data Lab / Micro Data Result Diagrams: 11/14/21 09:40 11/14/21 09:40 Charges/Coding Addendum Addendum: This patient was seen in conjunction with MILKA Dahl. I have independently interviewed and examined the patient and reviewed pertinent historical, laboratory, and other data. Please refer to MILKA Dahl's note for his patient's presentation, findings, and recommendations. I have reviewed and his note and concur with his documentation Patient was seen and examined. Still having spikes of fever. Feels overall somehow improved. Denies any nausea but had an episode of emesis- greenish. He has been passing gas. His last bowel movement was 3 days ago. Denies any abdominal pain or bloating. Physical Exam: Gen: Comfortable, obese, not pale, not jaundiced CVS:HS I +II, regular, no murmurs RESP: Diminished at lung bases GI: BS present and normal, soft, nontender, no palpable organs EXT:Bilateral pedal edema +1, chronic venous stasis hyperpigmentation of lower legs ASSESSMENT: 1. Severe sepsis secondary to acute right pyelonephritis secondary to suprapubic catheter 2. Type II DM 3. Hypertension 4. Hyperlipidemia 5. Prostate CA status post radiation 6. Hypokalemia Plan: DC IV fluids, continue IV ceftriaxone Follow-up on blood and urine cultures Replace potassium Continue to hold Metformin Continue Lantus 80mg BID and increase to Humalog 20 units TID, continue with ISS with blood glucose checks Time spent taking coordinating all aspects of patient's care, discussing with nursin minutes Visit Charges Inpatient E&M: 76221 Subs Hosp L2
[2021-11-14] MEDS: Potassium Chloride Oral Tablet 20 MEQ 40 MEQ PO (11:59)
[2021-11-14 12:10] LABS: Bedside Glucose 201 mg/dL (74-106)
[2021-11-14] MEDS: Magnesium Hydroxide 30 ML UDC PO (15:01)
[2021-11-14] MEDS: Insulin Lispro 100 UNIT/ML INSULN.PEN 20 UNIT SC (16:15)
[2021-11-14 16:21] LABS: Bedside Glucose 190 mg/dL (74-106)
--- NOTE | 2021-11-14 16:50 | NURSING ---
Flushed SP tube with 60cc NS due to no output in urine bag x 3 hours.
--- NOTE | 2021-11-14 17:04 | RAD_ITS ---
STUDY: X-RAY - ABDOMEN/PELVIS REASON FOR EXAM: Male, 71 years old. abdominal distention. TECHNIQUE: 1 view COMPARISON: None. FINDINGS: Please see the impression. RAD/Abdomen Single View IMPRESSION: Limited study by the patient''s body habitus. No definite evidence of high-grade bowel obstruction. Multilevel lumbar spondylosis. Mild osteoarthritis of the bilateral hip joints. Electronically Signed: Bola Go MD at 19:38 EDT ,
[2021-11-14] MEDS: Furosemide 40 MG Tablet PO (17:42)
[2021-11-14] MEDS: Atorvastatin Calcium 20 MG Tablet PO (21:03)
[2021-11-14] MEDS: Primidone 50 MG Tablet 100 MG PO (21:03)
[2021-11-14] MEDS: Pramipexole Di-HCl 1 MG Tablet PO (21:03)
[2021-11-14 21:30] LABS: Bedside Glucose 183 mg/dL (74-106)
[2021-11-15] VITALS (15 sets, daily range): BP systolic 146–165; BP diastolic 66–79; PULSE 64–84; RESP 16–22; TEMP 37.1–38.1; O2SAT 93–100
[2021-11-15] MEDS: Insulin Lispro 100 UNIT/ML INSULN.PEN SC ×3 (06:16→16:25)
[2021-11-15] MEDS: Enoxaparin 40 MG/0.4 ML Syringe SC (06:17)
[2021-11-15 06:28] LABS: Absolute Lymphocyte Count 0.61 X10^3/uL (0.83-4.51); Absolute Neutrophil Count 7.7 X10^3/uL (2.0-7.7); Basophil# 0.02 X10^3/uL; Basophil% 0.2 % (0-1); Eosinophil# 0.03 X10^3/uL; Eosinophils% 0.3 % (0-5); Hematocrit 33.7 % (40-54); Hemoglobin 10.7 g/dL (13.0-16.5); Lymphocyte # 0.61 X10^3/ul (0.83-4.51); Lymphocyte % 6.7 % (19-41); Mean Corp Hgb Conc 31.8 g/dL (32-36); Mean Corpuscular Hgb 24.2 pg (27.0-32.0); Mean Corpuscular Volume 76.1 fL (80-94); Mean Platelet Vol. 10.2 fl (6.2-12.0); Monocyte# 0.73 X10^3/uL; NRBC Flagged by Analyzer 0.2 % (0-5); Neutrophil # 7.66 X10^3/uL (2.7-7.7); Neutrophil % 84.4 % (47-70); Platelet Count 161 K/mm3 (150-450); RBC Distribution Width CV 17.3 % (11.6-14.6); RBC Distribution Width SD 48.1 fl (35.1-43.9); Red Blood Count 4.43 M/mm3 (4.6-6.2); White Blood Count 9.1 K/mm3 (4.4-11.0)
[2021-11-15 06:31] LABS: Bedside Glucose 157 mg/dL (74-106)
[2021-11-15 06:55] LABS: Anion Gap 9 (5-15); BUN 21 mg/dL (7-18); BUN/Creat Ratio 21.3 RATIO (10-20); Calcium,Total 7.3 mg/dL (8.5-10.1); Chloride 98 mmol/L (98-107); Creatinine, Serum 0.98 mg/dL (0.70-1.30); EST Glomerular Filtration Rate 80 mL/min (>60); Est Glom Filt Rate - Afr Amer 97 mL/min (>60); Estimated Creatinine Clearance 73.46 ml/min; Glucose 143 mg/dL (74-106); Potassium 3.2 mmol/L (3.5-5.1); Sodium Level 133 mmol/L (136-145)
[2021-11-15] MEDS: Albuterol 2.5 MG/3 ML VIAL.NEB. INHALATION ×4 (07:26→19:05)
[2021-11-15] MEDS: Budesonide Respules 0.5 MG/2 ML AMPUL.NEB. INHALATION ×2 (07:26→19:05)
--- NOTE | 2021-11-15 09:48 | EKG12_ITS ---
Test Reason : SOB Blood Pressure : / mmHG Vent. Rate : 075 BPM Atrial Rate : 075 BPM P-R Int : 210 ms QRS Dur : 086 ms QT Int : 392 ms P-R-T Axes : 070 188 058 degrees QTc Int : 437 ms Sinus rhythm with 1st degree A-V block Otherwise normal ECG Confirmed by NEEL ESPITIA, CJ ([id number]), newspaper photo editor JULY PELAYO ([id number]) on 11/16/2021 8:46:31 AM Referred By: MARIANNA Confirmed By:CJ SHAIKH MD
[2021-11-15 09:50] LABS: Bedside Glucose 192 mg/dL (74-106)
[2021-11-15] MEDS: Aspirin E.C. 81 MG Tablet PO (10:16)
[2021-11-15] MEDS: Potassium Chloride Oral Tablet 20 MEQ 40 MEQ PO (10:18)
[2021-11-15] MEDS: Insulin Lispro 100 UNIT/ML INSULN.PEN 20 UNIT SC ×3 (10:18→16:26)
[2021-11-15] MEDS: Insulin Glargine-YFGN 100 UNIT/ML Pen 80 UNIT SC (10:19)
[2021-11-15] MEDS: Tolterodine Tartrate 4 MG CAP.SA PO (10:19)
[2021-11-15] MEDS: Citalopram 20 MG Tablet PO (10:19)
[2021-11-15] MEDS: hydroCHLOROthiazide 25 MG Tablet PO (10:19)
[2021-11-15] MEDS: Lisinopril 20 MG Tablet PO ×2 (10:20→20:56)
[2021-11-15] MEDS: Ceftriaxone 1 GM/50 ML BAG IV ×2 (10:22→14:06)
--- NOTE | 2021-11-15 11:33 | PCM.DC ---
Discharge Instructions Diet Discharge Diet: No restrictions Activity Discharge Activity: Return to Normal Activity Weight Bearing Status: Weight bearing as tolerated Dressing / Incision Call your doctor if you observe: Fever of 101 or Higher, Numbness or Tingling, Shortness of breath, Dizziness, Chest pain, Increased palpitations (irregular heartbeat) and Calf discomfort Follow Up Care Please Follow Up With: Primary care provider When: Within the next two weeks. Test Results: Test results from this visit will be discussed in further detail at your follow-up appointment, if applicable. Discharge Plan Admission Admit Date/Time: 11/13/21 17:36 Primary Reason for Your Visit: Fever Attending Provider: Luiza Khan Primary Care Provider: Sachin Dominguez [employer] Providers: Jose Moody Discharge Orders/Prescriptions Prescriptions: No Action lisinopril 20 MG tablet 20 mg PO BID RF: 0 simvastatin 40 MG tablet 40 mg PO QHS RF: 0 metformin 1,000 MG tablet 1,000 mg PO BID RF: 0 hydrochlorothiazide 25 MG tablet 25 mg PO DAILY RF: 0 albuterol sulfate [ProAir HFA] 1 PUFF inhaler 1 puff inhalation Q6H PRN PRN (Reason: Bronchodialation) RF: 0 insulin lispro [Humalog KwikPen Insulin] 100 UNIT/ML insulin pen 70 units subcut TID RF: 0 Lantus Solostar U-100 Insulin 100 UNITS/ML insulin pen 80 unit subcut BID RF: 0 Breo Ellipta 1 EACH blister with device 1 puff inhalation DAILY RF: 0 aspirin 81 MG tablet,delayed release (DR/EC) 81 mg PO DAILY RF: 0 Hold Instructions: Resume on 05/12/21. pramipexole [Mirapex] 0.5 MG tablet 1 mg PO QHS RF: 0 primidone 50 mg tablet 100 mg PO QHS RF: 0 citalopram 20 mg tablet 20 mg PO DAILY RF: 0 solifenacin 10 mg Tablet 10 mg PO DAILY RF: 0 Trulance 3 mg Tablet 3 mg PO DAILY RF: 0 Referrals / Follow Up: Sachin Dominguez Chi, MD [Primary Care Provider] - Disposition Disposition (needs filled in before D/C Order can be placed): Home, Self Care
--- NOTE | 2021-11-15 11:35 | CASEMGMT ---
MIKE GLASER assessment: Face to Face with patient for initial transition planning/care coordination assessment. MIKE GLASER introduced self and role at [facility], pt voices understanding and consents to assessment. Pt is lying in bed asleep in no distress on home cpap with nasal mask. Pt's at bedside and completed assessment for pt at this time. Care providers, pharmacy, and demographics verified. Presentation: Pt c/o fever x3 days w/ nausea Admitting dx: sever sepsis, UTI PCP: Alberto Specialists: Sharonda, uro; pulm in [place] Preferred Pharmacy: [facility] [place] Insurance: MCR A/B, [employer] Prescription Benefit: Yes Living Will/HPOA: Per , pt has LW/HPOA and is aware that they are not on file at [facility] at this time. Pt's , Carl Christianson, is HPOA. LNOK: Carl Christianson, /HPOA Living Arrangements: Pt lives with in 1 story home with 1-2 steps in and states assists pt with ADL's. Transportation: Pt or drive and state no transportation concerns. DME/HHC: Pt has a cpap, cane, and suprapubic catheter with reyes bag. Pt/ decline need for any further DME. states no hx of HHC or SNF in the past. states no concerns with pt going home at time of discharge but does vent frustration regarding ongoing medical problems with no explanations/answers. very upset that she has not spoken with hospitalist and is upset with pt continued SOB, also possible d/c today. King Cavazos PA, and Geri MCKEON all updated, voice understanding. Advised that pt is still awaiting ID c/s and that PA will be coming to speak with her, voices understanding. Emotional support provided to and she did calm down. CM to follow for further discharge planning/needs. Advised pt/ to ask for CM if any further questions/concerns/needs arise, voices understanding. Pt Goal: Home [place]ASER
[2021-11-15 12:05] LABS: Bedside Glucose 211 mg/dL (74-106)
--- NOTE | 2021-11-15 12:42 | CON.PCM.ID_ITS ---
Assessment & Plan Assessment/Plan (1) Sepsis: (2) Pyelonephritis: PLAN: GNR bacteremia with ecoli pyelonephritis - improving. Will increase dose of ceftriaxone. Reports nightly elevated temps 99-low 100 for past year or so, encouraged him to follow up with PCP for that issue. If continues to improve, plan will be for d/c home with po keflex for 7-10 more days. Will follow, thank you, d/w primary team. Encouraged him to start covid vaccine, he will think about it. HPI Consult Data Date of Consult: 11/15/21 HPI Narrative HPI Narrative: SIENA SALAMANCA, is a 71 M with suprapubic catheter and h/o COPD and prostate cancer, presented 11/13 with 2 days of fever, chills, confusion/hallucinations, n/v, R flank pain. Has chronic low grade temps, chronic abd pain. Came to ED, admitted on ceftriaxone. Feeling better, but still some dyspnea and confusion last night. Has not gotten covid vaccine. provided additional history at bedside. Full ROS performed and neg except as noted above. [facility] Medical History Bladder disease Bruising Cancer COPD (chronic obstructive pulmonary disease) CPAP (continuous positive airway pressure) dependence Depression Diabetes Dietary restriction Former smoker High cholesterol History of cataract History of diverticulitis History of edema History of stress test Hypertension Indwelling urethral catheter present Insulin dependent diabetes mellitus Prostate disease Restless legs Shortness of breath on exertion Sleep apnea Wears glasses Wears hearing aid Home Medications Breo Ellipta 1 puff INHALATION DAILY 05/31/17 [History Last Taken 11/13/21 09:00] Lantus Solostar U-100 Insulin 80 unit SUBCUT BID 05/31/17 [History Last Taken 11/13/21 09:00] albuterol sulfate [ProAir HFA] 1 puff INHALATION Q6H PRN PRN 05/31/17 [History Last Taken 11/13/21 09:00] hydrochlorothiazide 25 mg PO DAILY 05/31/17 [History Last Taken 11/12/21 09:00] insulin lispro [Humalog KwikPen Insulin] 70 units SUBCUT TID 05/31/17 [History Last Taken 11/13/21 12:00] lisinopril 20 mg PO BID 05/31/17 [History Last Taken 11/12/21 09:00] metformin 1,000 mg PO BID 05/31/17 [History Last Taken 11/12/21 09:00] simvastatin 40 mg PO QHS 05/31/17 [History Last Taken 11/11/21 21:00] aspirin 81 mg PO DAILY 09/19/17 [History Last Taken 11/12/21 09:00] pramipexole [Mirapex] 1 mg PO QHS 09/19/17 [History Last Taken 11/11/21 21:00] citalopram 20 mg PO DAILY 11/13/21 [History Last Taken 11/12/21 09:00] plecanatide [Trulance] 3 mg PO DAILY 11/13/21 [History Last Taken 11/12/21 09:00] primidone 100 mg PO QHS 11/13/21 [History Last Taken 11/11/21 21:00] solifenacin 10 mg PO DAILY 11/13/21 [History Last Taken 11/12/21 09:00] Allergy/AdvReac Type Severity Reaction Status Date / Time No Known Allergies Allergy Verified 05/05/21 08:45 Family History (Updated 11/13/21 @ 17:56 by Quintin JARQUIN) Father Diabetes Mother Heart disease Surgical History History of eye surgery History of implantation of artificial sphincter Social History (Updated 11/13/21 @ 17:56 by Quintin JARQUIN) Smoking Status: Former smoker Tobacco: How many years used: 20 how long ago did patient quit smokin years ago, was smoking two packs per day. alcohol intake: former Physical Exam Const alert and no apparent distress General Appearance: cooperative Exam Limitations: no limitations HEENT normocephalic and head/scalp atraumatic Eyes PERRL and EOMs intact bilaterally Neck supple and No nodes Resp normal air movement and clear to auscultation bilaterally Auscultation: diminished lung sounds Cardio regular rate and regular rhythm GI soft to palpation, non-tender and non-distended GI Narrative: suprapubic cath with small amount clear drainage Extremity General Extremity: edema Skin no rashes or lesions noted Neuro CN's II-XII intact bilaterally Lab / Micro Data Result Diagrams: 11/15/21 05:50 11/15/21 05:50 Labs: Laboratory Results - last 24 hr 11/14/21 16:13: POC Glucose 190 H 11/14/21 20:58: POC Glucose 183 H 11/15/21 05:50: WBC 9.1, RBC 4.43 L, Hgb 10.7 L, Hct 33.7 L, MCV 76.1 L, MCH 24.2 L, MCHC 31.8 L, RDW Std Deviation 48.1 H, RDW Coeff of Bhavin 17.3 H, Plt Count 161, MPV 10.2, Immature Gran % (Auto) 0.400, Neut % (Auto) 84.4 H, Lymph % (Auto) 6.7 L, [place] % (Auto) 8.0, Eos % (Auto) 0.3, Baso % (Auto) 0.2, Absolute Neuts (auto) 7.7, Absolute Lymphs (auto) 0.61 L, Nucleated RBC % 0.2 11/15/21 05:50: Sodium 133 L, Potassium 3.2 L, Chloride 98, Carbon Dioxide 26.0, Anion Gap 9, BUN 21 H, Creatinine 0.98, Estim Creat Clear Calc 73.46, Est GFR (MDRD) Af Amer 97, Est GFR (MDRD) Non-Af 80, BUN/Creatinine Ratio 21.3 H, Glucose 143 H, Calcium 7.3 L 11/15/21 06:14: POC Glucose 157 H 11/15/21 09:37: POC Glucose 192 H 11/15/21 11:58: POC Glucose 211 H Micro: Microbiology 11/13/21 15:45 Urine, Clean Catch Urine Culture - Final Escherichia coli 11/13/21 14:34 Blood Culture (Wb) - Right Wrist Blood Culture - Preliminary 11/13/21 13:45 Blood Culture (Wb) - Anticubital Right Blood Culture - Preliminary Gram negative denise Radiology Impression KUB X-Ray 11/14/21 17:04 IMPRESSION: Limited study by the patient''s body habitus. No definite evidence of high-grade bowel obstruction. Multilevel lumbar spondylosis. Mild osteoarthritis of the bilateral hip joints. Electronically Signed: Bola Go MD at 19:38 EDT ,
--- NOTE | 2021-11-15 12:49 | PN.HOSP_ITS ---
Documented by User: Quintin JARQUIN 11/15/21 12:55 Subjective Subjective Patient is a 71-year-old male comfortably resting in bed, alert and orient x3. Patient reports no further problems, reports shortness of breath has improved from last night. Does not appear in acute distress. Objective Data Objective Data Vital Signs: Vital Signs Temp Pulse Resp BP Pulse Ox 98.8 F 76 22 H 153/68 H 93 11/15/21 10:14 11/15/21 10:14 11/15/21 10:34 11/15/21 10:14 11/15/21 10:14 Oxygen Flow Rate (L/min) 1 Oxygen Delivery Method CPAP Weight: 299 lb 9.731 oz Body Mass Index (BMI) 43.0 Intake & Output: Intake and Output for Last 24 Hours 11/13/21 11/14/21 11/15/21 23:59 23:59 23:59 Intake Total 2410 / 2410 4845 / 4845 170 / 170 Output Total 125 / 375 975 / 975 100 / 100 Balance 2285 / 2035 3870 / 3870 70 / 70 Lab / Micro Data Result Diagrams: 11/15/21 05:50 11/15/21 05:50 Labs: Laboratory Results - last 24 hr 11/14/21 16:13: POC Glucose 190 H 11/14/21 20:58: POC Glucose 183 H 11/15/21 05:50: WBC 9.1, RBC 4.43 L, Hgb 10.7 L, Hct 33.7 L, MCV 76.1 L, MCH 24.2 L, MCHC 31.8 L, RDW Std Deviation 48.1 H, RDW Coeff of Bhavin 17.3 H, Plt Count 161, MPV 10.2, Immature Gran % (Auto) 0.400, Neut % (Auto) 84.4 H, Lymph % (Auto) 6.7 L, [place] % (Auto) 8.0, Eos % (Auto) 0.3, Baso % (Auto) 0.2, Absolute Neuts (auto) 7.7, Absolute Lymphs (auto) 0.61 L, Nucleated RBC % 0.2 11/15/21 05:50: Sodium 133 L, Potassium 3.2 L, Chloride 98, Carbon Dioxide 26.0, Anion Gap 9, BUN 21 H, Creatinine 0.98, Estim Creat Clear Calc 73.46, Est GFR (MDRD) Af Amer 97, Est GFR (MDRD) Non-Af 80, BUN/Creatinine Ratio 21.3 H, Glucose 143 H, Calcium 7.3 L 11/15/21 06:14: POC Glucose 157 H 11/15/21 09:37: POC Glucose 192 H 11/15/21 11:58: POC Glucose 211 H Micro: Microbiology 11/13/21 15:45 Urine, Clean Catch Urine Culture - Final Escherichia coli 11/13/21 14:34 Blood Culture (Wb) - Right Wrist Blood Culture - Preliminary 11/13/21 13:45 Blood Culture (Wb) - Anticubital Right Blood Culture - Preliminary Gram negative denise 11/13/21 13:40 Nasal Secretion SARS-CoV-2 & FLU Antigen (Rapid) - Final Radiography Diagnostic Testing: Radiology Impression KUB X-Ray 11/14/21 17:04 IMPRESSION: Limited study by the patient''s body habitus. No definite evidence of high-grade bowel obstruction. Multilevel lumbar spondylosis. Mild osteoarthritis of the bilateral hip joints. Electronically Signed: Bola Go MD at 19:38 EDT , Physical Exam Const alert, oriented x3 and no apparent distress HEENT head/scalp atraumatic and moist oral mucous membranes Head and Scalp: normocephalic Eyes PERRL and conjunctivae normal Neck no lymphadenopathy, supple and no JVD Resp normal respiratory effort, no retractions and no use of accessory muscles Cardio regular rate, regular rhythm and no JVD GI normal to inspection, nondistended, normoactive bowel sounds Extremity normal to inspection Skin no rashes or lesions noted, no wounds and skin turgor normal Neuro CN's II-XII intact bilaterally Psych affect normal Assessment & Plan Assessment/Plan (1) Pyelonephritis: (2) Lactic acid acidosis: (3) Sepsis: PLAN: Day 2 Discharge planning: Current plan is for patient to discharge home when medically ready. Day 1 Discharge planning: Current plan is for patient to discharge home when medically ready. 1) acute pyelonephritis Urine cultures show E. Coli. BCx show preliminary GNR. Indwelling suprapubic catheter appears intact and is draining well. ID saw patient, recommends continue with current admission and he will increase Rocephin. If patient continues to improve overnight and remains afebrile he can discharge on Keflex for another 7 to 10 days. 2) sepsis Resolved. Secondary to #1. Patient no longer meets SIRS criteria for sepsis as fever and lactic acidosis have resolved. White count no longer elevated. qSOFA still 0. Plan as above. 3) hypokalemia Potassium currently 3.2, replaced we will continue to trend BMP. 4) history COPD Not in acute exacerbation. Continue bronchodilators. 5) DM2 Continue home insulin regimen, Accu-Cheks assigned scale insulin ordered, hold home Metformin given lactic acidosis. 6) HTN Continue lisinopril and hydrochlorothiazide. 7) hyperlipidemia Continue statin. 8) depression/anxiety Continue citalopram. 9) Hx of Prostate CA s/p radiation with indwelling suprapubic catheter Appears intact. No purulent drainage, erythema or pain to palpation noted ar ound catheter. Complicates #1. Follows with Dr. Mcdonough. DVT prophylaxis - Lovenox Patient seen by Quintin Martínez PA-C, under the supervision of Dr. Khan. Time spent on patient care: 8 minutes. Documented by User: Dr. Luiza Khan MD 11/15/21 14:49 Objective Data Lab / Micro Data Result Diagrams: 11/15/21 05:50 11/15/21 05:50 Charges/Coding Addendum Addendum: Patient seen by Quintin Martínez PA-C under my supervision Patient seen and examined. He had no active complaints this morning and said he felt well. Patient however noted to have a fever of 100.2 Fahrenheit in the early hours of this morning. Wbc is down to 9.1 O/E: Const alert, oriented x3 and no apparent distress General Appearance: cooperative HEENT normocephalic, head/scalp atraumatic, hearing grossly normal bilaterally and moist oral mucous membranes Eyes PERRL, EOMs intact bilaterally and conjunctivae normal Neck no lymphadenopathy, supple and no JVD Resp normal respiratory effort and clear to auscultation bilaterally Cardio regular rate, regular rhythm, S1 normal heart sound, S2 normal heart sound and no murmurs GI normal to inspection, nondistended, normoactive bowel sounds and soft to palpation, obese abdomen Extremity normal to inspection, full ROM and no clubbing, cyanosis or edema Skin no rashes or lesions noted Neuro oriented x3, CN's II-XII intact bilaterally and moves all extremities Sensorium / Orientation: awake and alert Psych affect normal Assessment and plan #Acute pyelonephritis * WBC is 9.1. However he is still having fever and had fever 100.2 Fahrenheit this morning. * Blood culture showed preliminary gram-negative rods. Has an indwelling suprapubic catheter. * On IV Rocephin. ID consulted. * #Sepsis due to acute pyelonephritis * resolved. wbc has trended down. * on IV ceftriaxone * #Hypokalemia: potassium is 3.2. Will replace and trend #history of COPD: not in exacerbation. on breathing treatment with bronchodilators #Type 2 diabetes mellitus * on insulin. ISS. Accuchecks ACHS * HTN: on lisinopril and HCTZ #Hyperlipidemia:on statin #Depression;on citalopraom #History of prostate cancer * s/p radiation. Has indwelling suprapubic catheter * to follow with Dr Mcdonough on outpatient basis * DVT prophylaxis: lovenox Rest as Per Quintin Martínez PA-c's note, which I have reviewed and endorsed. Total time I spent on patient's care today: 20 mins, with Quintin Martínez spending 8 mins. Total time spent on care of patient today: 28 mins Visit Charges Inpatient E&M: 55159 Subs Hosp L2
[2021-11-15 16:57] LABS: Bedside Glucose 223 mg/dL (74-106)
--- NOTE | 2021-11-15 17:52 | NURSING ---
All documentation and medication administration completed by Becky De Leon SN completed under supervision of this RN
[2021-11-15] MEDS: Atorvastatin Calcium 20 MG Tablet PO (20:55)
[2021-11-15] MEDS: Primidone 50 MG Tablet 100 MG PO (20:56)
[2021-11-15] MEDS: Pramipexole Di-HCl 1 MG Tablet PO (20:56)
[2021-11-15 22:10] LABS: Bedside Glucose 127 mg/dL (74-106)
[2021-11-15] MEDS: Acetaminophen 325 MG Tablet 650 MG PO (23:56)
[2021-11-16] VITALS (8 sets, daily range): BP systolic 154–165; BP diastolic 67–89; PULSE 62–80; RESP 18; TEMP 35.9–36.2; O2SAT 95–97
[2021-11-16] MEDS: Enoxaparin 40 MG/0.4 ML Syringe SC (05:39)
[2021-11-16 06:09] LABS: Absolute Lymphocyte Count 0.88 X10^3/uL (0.83-4.51); Absolute Neutrophil Count 4.9 X10^3/uL (2.0-7.7); Basophil# 0.02 X10^3/uL; Basophil% 0.3 % (0-1); Eosinophil# 0.11 X10^3/uL; Eosinophils% 1.7 % (0-5); Hematocrit 34.2 % (40-54); Hemoglobin 10.7 g/dL (13.0-16.5); Lymphocyte # 0.88 X10^3/ul (0.83-4.51); Lymphocyte % 13.3 % (19-41); Mean Corp Hgb Conc 31.3 g/dL (32-36); Mean Corpuscular Volume 76.9 fL (80-94); Mean Platelet Vol. 9.5 fl (6.2-12.0); Monocyte# 0.63 X10^3/uL; Monocyte% 9.5 % (0-10); NRBC Flagged by Analyzer 0 % (0-5); Neutrophil # 4.93 X10^3/uL (2.7-7.7); Neutrophil % 74.7 % (47-70); Platelet Count 164 K/mm3 (150-450); RBC Distribution Width CV 17.2 % (11.6-14.6); RBC Distribution Width SD 47.8 fl (35.1-43.9); Red Blood Count 4.45 M/mm3 (4.6-6.2); White Blood Count 6.6 K/mm3 (4.4-11.0)
[2021-11-16 06:49] LABS: Anion Gap 8 (5-15); BUN 18 mg/dL (7-18); BUN/Creat Ratio 21.3 RATIO (10-20); Calcium,Total 7.6 mg/dL (8.5-10.1); Chloride 97 mmol/L (98-107); Creatinine, Serum 0.84 mg/dL (0.70-1.30); EST Glomerular Filtration Rate 96 mL/min (>60); Est Glom Filt Rate - Afr Amer 116 mL/min (>60); Glucose 135 mg/dL (74-106); Potassium 3.3 mmol/L (3.5-5.1); Sodium Level 133 mmol/L (136-145)
[2021-11-16] MEDS: Albuterol 2.5 MG/3 ML VIAL.NEB. INHALATION ×2 (07:35→11:07)
[2021-11-16] MEDS: Budesonide Respules 0.5 MG/2 ML AMPUL.NEB. INHALATION (07:35)
[2021-11-16] MEDS: Potassium Chloride Oral Tablet 20 MEQ 40 MEQ PO (08:14)
[2021-11-16] MEDS: Insulin Lispro 100 UNIT/ML INSULN.PEN 20 UNIT SC ×2 (08:15→11:25)
[2021-11-16] MEDS: Aspirin E.C. 81 MG Tablet PO (08:15)
[2021-11-16 08:30] LABS: Bedside Glucose 146 mg/dL (74-106)
[2021-11-16] MEDS: Tolterodine Tartrate 4 MG CAP.SA PO (09:24)
[2021-11-16] MEDS: hydroCHLOROthiazide 25 MG Tablet PO (09:24)
[2021-11-16] MEDS: Citalopram 20 MG Tablet PO (09:24)
[2021-11-16] MEDS: Lisinopril 20 MG Tablet PO (09:24)
--- NOTE | 2021-11-16 10:00 | CASEMGMT ---
Addendum entered by Yulissa Self 11/16/21 11:35: This RN CM back to room and pt/ decline need for further therapy at this time. Pt/ aware that PCP can order once home, if they change their mind. Pt's does still work but his sis-in-law is there at the home also and she does not work. Pt/ would like script for WW and state no preference on DME company. [place] [facility] [place] of [place]. Pt/ voice no further questions/concerns/needs. does state to this RN CM that she got her questions answered from yesterday. Rashmi MCKEON CM Original Note: This RN CM to room to discuss d/c plan and pt/ are not sure about needs at this time and wants to make sure that therapy sees pt today prior to d/c. Therapy aware and CM to follow. Rashmi MCKEON CM
--- NOTE | 2021-11-16 10:09 | PCM.PN.ID ---
Physical Exam Narrative Feeling much better, no fever, no n/v/d, no abd pain Const alert and no apparent distress General Appearance: cooperative Resp normal air movement and clear to auscultation bilaterally Cardio regular rate and regular rhythm GI soft to palpation, non-tender and non-distended Skin no rashes or lesions noted ID ID: Route of nutrition/ use of supplements: [] Nutritional Intake: [] IV Site: [] Steiner Catheter: [] Assessment & Plan Assessment/Plan (1) Sepsis: (2) Pyelonephritis: PLAN: Ecoli bacteremia with ecoli pyelonephritis - much improved. Ok for d/c home with 1 week of keflex, 500mg tid. Will follow as needed, d/w primary team. Encouraged him to start covid vaccine, he will think about it.
--- NOTE | 2021-11-16 10:30 | PCM.DC ---
Discharge Instructions Diet Discharge Diet: No restrictions Activity Discharge Activity: Return to Normal Activity Weight Bearing Status: Weight bearing as tolerated Dressing / Incision Call your doctor if you observe: Fever of 101 or Higher, Numbness or Tingling, Shortness of breath, Dizziness, Chest pain, Increased palpitations (irregular heartbeat) and Calf discomfort Follow Up Care Please Follow Up With: Primary care provider When: Within the next two weeks. Test Results: Test results from this visit will be discussed in further detail at your follow-up appointment, if applicable. Discharge Plan Admission Admit Date/Time: 11/13/21 17:36 Primary Reason for Your Visit: Fever Attending Provider: Luiza Khan Primary Care Provider: Sachin Dominguez [employer] Providers: Jose Moody Discharge Orders/Prescriptions Prescriptions: New cephalexin 500 mg capsule 500 mg PO TID Qty: 21 RF: 0 Continued lisinopril 20 MG tablet 20 mg PO BID RF: 0 simvastatin 40 MG tablet 40 mg PO QHS RF: 0 metformin 1,000 MG tablet 1,000 mg PO BID RF: 0 hydrochlorothiazide 25 MG tablet 25 mg PO DAILY RF: 0 albuterol sulfate [ProAir HFA] 1 PUFF inhaler 1 puff inhalation Q6H PRN PRN (Reason: Bronchodialation) RF: 0 insulin lispro [Humalog KwikPen Insulin] 100 UNIT/ML insulin pen 70 units subcut TID RF: 0 Lantus Solostar U-100 Insulin 100 UNITS/ML insulin pen 80 unit subcut BID RF: 0 Breo Ellipta 1 EACH blister with device 1 puff inhalation DAILY RF: 0 aspirin 81 MG tablet,delayed release (DR/EC) 81 mg PO DAILY RF: 0 Hold Instructions: Resume on 05/12/21. pramipexole [Mirapex] 0.5 MG tablet 1 mg PO QHS RF: 0 primidone 50 mg tablet 100 mg PO QHS RF: 0 citalopram 20 mg tablet 20 mg PO DAILY RF: 0 solifenacin 10 mg Tablet 10 mg PO DAILY RF: 0 Trulance 3 mg Tablet 3 mg PO DAILY RF: 0 Referrals / Follow Up: Max Mcdonough MD [STAFF PHYSICIAN] - See Referral Note (Inform Dr. Mcdonough's office that you were recently admitted for Pyelonephritis/UTI and follow up as instructed. ) Sachin Dominguez Chi, MD [Primary Care Provider] - Within 2 Weeks Disposition Disposition (needs filled in before D/C Order can be placed): Home, Self Care
[2021-11-16] MEDS: Insulin Glargine-YFGN 100 UNIT/ML Pen 80 UNIT SC (10:38)
--- NOTE | 2021-11-16 11:16 | PHA.DC.MC ---
Pharmacy Service has performed discharge medication reconciliation and counseling for this patient. 1. CEPHALEXIN 500MG PO TID X 7 DAYS The patient's discharge medication list was reviewed for discrepancies and discrepancies were resolved. Home Medications Breo Ellipta 1 puff INHALATION DAILY 05/31/17 Lantus Solostar U-100 Insulin 80 unit SUBCUT BID 05/31/17 albuterol sulfate [ProAir HFA] 1 puff INHALATION Q6H PRN PRN 05/31/17 hydrochlorothiazide 25 mg PO DAILY 05/31/17 insulin lispro [Humalog KwikPen Insulin] 70 units SUBCUT TID 05/31/17 lisinopril 20 mg PO BID 05/31/17 metformin 1,000 mg PO BID 05/31/17 simvastatin 40 mg PO QHS 05/31/17 aspirin 81 mg PO DAILY 09/19/17 pramipexole [Mirapex] 1 mg PO QHS 09/19/17 Trulance 3 mg PO DAILY 11/13/21 citalopram 20 mg PO DAILY 11/13/21 primidone 100 mg PO QHS 11/13/21 solifenacin 10 mg PO DAILY 11/13/21 cephalexin 500 mg PO TID #21 cap 11/16/21 The patient was counseled on the following discharge medications and changes in medications for homegoing were reviewed. The Reason for Use, instructions for use, and potential side effects were reviewed for all new medications. The patient's questions regarding all of their medications were answered. The patient was able to verbally demonstrate an understanding of their discharge medications.
[2021-11-16] MEDS: Insulin Lispro 100 UNIT/ML INSULN.PEN SC (11:26)
[2021-11-16 12:31] LABS: Bedside Glucose 161 mg/dL (74-106)
--- NOTE | 2021-11-16 13:06 | PCM.DC.SUM ---
Documented by User: Quintin JARQUIN 11/16/21 13:11 Providers Date of Admission: 11/13/21 Date of Discharge: 11/16/21 Primary Care Physician: Dr. Sachin Dominguez MD Consultations 11/14/21 13:58 Consult: Infectious Disease Routine Consulting Provider: Jose Moody Reason for Consult: Recurrent UTI's. EMERGENT Consult: No MD Notified: Yes Date Notified: 11/15/21 Time Notified: 07:40 Method of Notification: Answering Service Reason For Visit: SEVERE SEPSIS/UTI Diagnosis Discharge Diagnosis (1) Sepsis: Status: Acute Code(s): A41.9 - Sepsis, unspecified organism (2) Pyelonephritis: Status: Acute Code(s): N12 - Tubulo-interstitial nephritis, not specified as acute or chronic Medications at Discharge Home Medications Breo Ellipta 1 puff INHALATION DAILY 05/31/17 Lantus Solostar U-100 Insulin 80 unit SUBCUT BID 05/31/17 albuterol sulfate [ProAir HFA] 1 puff INHALATION Q6H PRN PRN 05/31/17 hydrochlorothiazide 25 mg PO DAILY 05/31/17 insulin lispro [Humalog KwikPen Insulin] 70 units SUBCUT TID 05/31/17 lisinopril 20 mg PO BID 05/31/17 metformin 1,000 mg PO BID 05/31/17 simvastatin 40 mg PO QHS 05/31/17 aspirin 81 mg PO DAILY 09/19/17 pramipexole [Mirapex] 1 mg PO QHS 09/19/17 Trulance 3 mg PO DAILY 11/13/21 citalopram 20 mg PO DAILY 11/13/21 primidone 100 mg PO QHS 11/13/21 solifenacin 10 mg PO DAILY 11/13/21 cephalexin 500 mg PO TID #21 cap 11/16/21 Hospital Course Summary of Care Provided Minutes Spent on Discharge: 25 Hospital Course: Patient is a 71-year-old male who was admitted to [facility] on 11/13/2021 for evaluation management of acute pyelonephritis. Hospital course and management as below. 1) acute pyelonephritis Patient has remained stable overnight, denies any urinary complaints or ongoing fevers. White count not elevated. Urine cultures show E. Coli. BCx show E. Coli and GNR. Indwelling suprapubic catheter appears intact and is draining well. ID saw patient, recommends Keflex for another 7 days. 2) sepsis Resolved. Secondary to #1. Patient no longer meets SIRS criteria for sepsis as fever and lactic acidosis have resolved. White count no longer elevated. qSOFA still 0. Plan as above. 3) hypokalemia Potassium currently 3.3, replaced. 4) history COPD Not in acute exacerbation. Continue bronchodilators. 5) DM2 Continue home diabetic regimen. 6) HTN Continue lisinopril and hydrochlorothiazide. 7) hyperlipidemia Continue statin. 8) depression/anxiety Continue citalopram. 9) Hx of Prostate CA s/p radiation with indwelling suprapubic catheter Appears intact. No purulent drainage, erythema or pain to palpation noted around catheter. Complicates #1. Follows with Dr. Mcdonough. Patient seen by Quintin Martínez PA-C, under the supervision of Dr. Khan. Time spent on patient care: 20 minutes. Physical Exam Narrative Patient is a 71-year-old male comfortably resting in bed, alert and orient x3. Patient reports that shortness of breath and fevers have been controlled, denies development of any new symptoms overnight. Does not appear in acute distress. Const alert, oriented x3 and no apparent distress HEENT normocephalic, head/scalp atraumatic and hearing grossly normal bilaterally Eyes PERRL and conjunctivae normal Neck no lymphadenopathy and no JVD Resp normal respiratory effort, no retractions and no use of accessory muscles Cardio regular rate, regular rhythm and no JVD GI normal to inspection, nondistended, normoactive bowel sounds Extremity normal to inspection Skin no rashes or lesions noted Neuro CN's II-XII intact bilaterally Psych affect normal Weight / BMI Weight Weight: 299 lb 9.731 oz Body Mass Index (BMI) 43.0 ABG / Lab / Microbiology Data Result Diagrams: 11/16/21 05:55 11/16/21 05:55 Laboratory: Laboratory Results - last 24 hr 11/15/21 16:24: POC Glucose 223 H 11/15/21 20:53: POC Glucose 127 H 11/16/21 05:55: WBC 6.6, RBC 4.45 L, Hgb 10.7 L, Hct 34.2 L, MCV 76.9 L, MCH 24.0 L, MCHC 31.3 L, RDW Std Deviation 47.8 H, RDW Coeff of Bhavin 17.2 H, Plt Count 164, MPV 9.5, Immature Gran % (Auto) 0.500, Neut % (Auto) 74.7 H, Lymph % (Auto) 13.3 L, [place] % (Auto) 9.5, Eos % (Auto) 1.7, Baso % (Auto) 0.3, Absolute Neuts (auto) 4.9, Absolute Lymphs (auto) 0.88, Nucleated RBC % 0 11/16/21 05:55: Sodium 133 L, Potassium 3.3 L, Chloride 97 L, Carbon Dioxide 28.0, Anion Gap 8, BUN 18, Creatinine 0.84, Estim Creat Clear Calc 85.70, Est GFR (MDRD) Af Amer 116, Est GFR (MDRD) Non-Af 96, BUN/Creatinine Ratio 21.3 H, Glucose 135 H, Calcium 7.6 L 11/16/21 08:13: POC Glucose 146 H 11/16/21 11:08: POC Glucose 161 H Microbiology: Microbiology 11/13/21 14:34 Blood Culture (Wb) - Right Wrist Blood Culture - Preliminary Gram negative denise 11/13/21 13:45 Blood Culture (Wb) - Anticubital Right Blood Culture - Preliminary Escherichia coli 11/13/21 15:45 Urine, Clean Catch Urine Culture - Final Escherichia coli 11/13/21 13:40 Nasal Secretion SARS-CoV-2 & FLU Antigen (Rapid) - Final D/C Instructions Discharge Diet: No restrictions Weight Bearing Status: Weight bearing as tolerated Call your doctor if you observe: Fever of 101 or Higher, Numbness or Tingling, Shortness of breath, Dizziness, Chest pain, Increased palpitations (irregular heartbeat) and Calf discomfort Please Follow Up With: Primary care provider When: Within the next two weeks. Meaningful Use Info Meaningful Use Diagnoses (Choose all that apply): None applicable Discharge Plan Admission Admit Date/Time: 11/13/21 17:36 Primary Reason for Your Visit: Fever Attending Provider: Luiza Khan Primary Care Provider: Sachin Dominguez [employer] Providers: Jose Moody Discharge Orders/Prescriptions Prescriptions: New cephalexin 500 mg capsule 500 mg PO TID Qty: 21 RF: 0 Continued lisinopril 20 MG tablet 20 mg PO BID RF: 0 simvastatin 40 MG tablet 40 mg PO QHS RF: 0 metformin 1,000 MG tablet 1,000 mg PO BID RF: 0 hydrochlorothiazide 25 MG tablet 25 mg PO DAILY RF: 0 albuterol sulfate [ProAir HFA] 1 PUFF inhaler 1 puff inhalation Q6H PRN PRN (Reason: Bronchodialation) RF: 0 insulin lispro [Humalog KwikPen Insulin] 100 UNIT/ML insulin pen 70 units subcut TID RF: 0 Lantus Solostar U-100 Insulin 100 UNITS/ML insulin pen 80 unit subcut BID RF: 0 Breo Ellipta 1 EACH blister with device 1 puff inhalation DAILY RF: 0 aspirin 81 MG tablet,delayed release (DR/EC) 81 mg PO DAILY RF: 0 Hold Instructions: Resume on 05/12/21. pramipexole [Mirapex] 0.5 MG tablet 1 mg PO QHS RF: 0 primidone 50 mg tablet 100 mg PO QHS RF: 0 citalopram 20 mg tablet 20 mg PO DAILY RF: 0 solifenacin 10 mg Tablet 10 mg PO DAILY RF: 0 Trulance 3 mg Tablet 3 mg PO DAILY RF: 0 Referrals / Follow Up: Max Mcdonough MD [STAFF PHYSICIAN] - 11/23/21 9:15 am (Inform Dr. Mcdonough's office that you were recently admitted for Pyelonephritis/UTI and follow up as instructed. ) Sachin Dominguez Chi, MD [Primary Care Provider] - 11/17/21 10:20 am Disposition Disposition (needs filled in before D/C Order can be placed): Home, Self Care Documented by User: Dr. Luiza Khan MD 11/16/21 15:15 Providers Date of Admission: 11/13/21 Reason For Visit: SEVERE SEPSIS/UTI Medications at Discharge Home Medications Breo Ellipta 1 puff INHALATION DAILY 05/31/17 Lantus Solostar U-100 Insulin 80 unit SUBCUT BID 05/31/17 albuterol sulfate [ProAir HFA] 1 puff INHALATION Q6H PRN PRN 05/31/17 hydrochlorothiazide 25 mg PO DAILY 05/31/17 insulin lispro [Humalog KwikPen Insulin] 70 units SUBCUT TID 05/31/17 lisinopril 20 mg PO BID 05/31/17 metformin 1,000 mg PO BID 05/31/17 simvastatin 40 mg PO QHS 05/31/17 aspirin 81 mg PO DAILY 09/19/17 pramipexole [Mirapex] 1 mg PO QHS 09/19/17 Trulance 3 mg PO DAILY 11/13/21 citalopram 20 mg PO DAILY 11/13/21 primidone 100 mg PO QHS 11/13/21 solifenacin 10 mg PO DAILY 11/13/21 cephalexin 500 mg PO TID #21 cap 11/16/21 ABG / Lab / Microbiology Data Result Diagrams: 11/16/21 05:55 11/16/21 05:55 Discharge Plan Admission Admit Date/Time: 11/13/21 17:36 Primary Reason for Your Visit: Fever Attending Provider: Luiza Khan Primary Care Provider: Sachin Dominguez [employer] Providers: Jose Moody Discharge Orders/Prescriptions Prescriptions: New cephalexin 500 mg capsule 500 mg PO TID Qty: 21 RF: 0 Continued lisinopril 20 MG tablet 20 mg PO BID RF: 0 simvastatin 40 MG tablet 40 mg PO QHS RF: 0 metformin 1,000 MG tablet 1,000 mg PO BID RF: 0 hydrochlorothiazide 25 MG tablet 25 mg PO DAILY RF: 0 albuterol sulfate [ProAir HFA] 1 PUFF inhaler 1 puff inhalation Q6H PRN PRN (Reason: Bronchodialation) RF: 0 insulin lispro [Humalog KwikPen Insulin] 100 UNIT/ML insulin pen 70 units subcut TID RF: 0 Lantus Solostar U-100 Insulin 100 UNITS/ML insulin pen 80 unit subcut BID RF: 0 Breo Ellipta 1 EACH blister with device 1 puff inhalation DAILY RF: 0 aspirin 81 MG tablet,delayed release (DR/EC) 81 mg PO DAILY RF: 0 Hold Instructions: Resume on 05/12/21. pramipexole [Mirapex] 0.5 MG tablet 1 mg PO QHS RF: 0 primidone 50 mg tablet 100 mg PO QHS RF: 0 citalopram 20 mg tablet 20 mg PO DAILY RF: 0 solifenacin 10 mg Tablet 10 mg PO DAILY RF: 0 Trulance 3 mg Tablet 3 mg PO DAILY RF: 0 Referrals / Follow Up: Max Mcdonough MD [STAFF PHYSICIAN] - 11/23/21 9:15 am (Inform Dr. Mcdonough's office that you were recently admitted for Pyelonephritis/UTI and follow up as instructed. ) Sachin Dominguez Chi, MD [Primary Care Provider] - 11/17/21 10:20 am Disposition Disposition (needs filled in before D/C Order can be placed): Home, Self Care Charges/Coding Addendum Addendum: Patient seen by Quintin Martínez PA-C under my supervision Patient is a 71-year-old male with a past medical history as outlined was admitted through the ED with a complaint of fever which has been going on for about 3 days prior to admission. Fever was not relieved with Tylenol. He also had associated nausea and dry heaving but denied any diarrhea. He also admitted to right flank pain. He had elevated lactic acid and urinalysis also was positive for UTI. CT of the abdomen and pelvis showed evidence of right pyelonephritis. He was admitted and managed for sepsis due to pyelonephritis. He was started on IV ceftriaxone and hydrated with IV fluids. Infectious disease was consulted. Patient's referred gradually improved and resolved. Patient also subsequently felt much better and his white cell count trended downwards. Blood cultures was positive for E. coli. He remained stable and was discharged home on 11/16/2021 on p.o. Keflex 500 mg 3 times daily for 1 week per ID recommendation. Patient was seen and examined prior to discharge. He had no active complaints and had an uneventful night. Vital signs otherwise negative. Labs and vitals reviewed. Medication reviewed and reconciled. O/E: Const alert, oriented x3 and no apparent distress General Appearance: cooperative HEENT normocephalic, head/scalp atraumatic, hearing grossly normal bilaterally and moist oral mucous membranes Eyes PERRL, EOMs intact bilaterally and conjunctivae normal Neck no lymphadenopathy, supple and no JVD Resp normal respiratory effort and clear to auscultation bilaterally Cardio regular rate, regular rhythm, S1 normal heart sound, S2 normal heart sound and no murmurs GI normal to inspection, nondistended, normoactive bowel sounds and soft to palpation, obese abdomen Extremity normal to inspection, full ROM and no clubbing, cyanosis or edema Skin no rashes or lesions noted Neuro oriented x3, CN's II-XII intact bilaterally and moves all extremities Sensorium / Orientation: awake and alert Psych affect normal Plan is for discharge home today. Rest as per Quintin Martínez PA-C's note which I reviewed and endorsed. Total time I spent on discharge of patient today is 28 mins with Quintin Martínez PA-C spending 20 mins, making a total of 48 mins. Visit Charges Inpatient E&M: 91985 Disch Hosp
== END 2021-11-16 13:29 | disposition home or self-care (01) | DRG 698 ==
LOC: ED 17:42 → PCU 17:55
PROVIDERS: Physician Assistant; Admitting Provider Internal Medicine; Emergency Provider Physician Assistant; PCP Family Medicine Geriatric Medicine; Visit Provider Student in an Organized Health Care Education/Training Program
DX: T83.511A Infection and inflammatory reaction due to indwelling urethral catheter, initial encounter (principal); A41.51 Sepsis due to Escherichia coli [E. coli]; R65.20 Severe sepsis without septic shock; N10 Acute pyelonephritis; C61 Malignant neoplasm of prostate; E11.65 Type 2 diabetes mellitus with hyperglycemia; E78.5 Hyperlipidemia, unspecified; J44.9 Chronic obstructive pulmonary disease, unspecified; Z79.4 Long term (current) use of insulin; I10 Essential (primary) hypertension; E87.6 Hypokalemia; F41.9 Anxiety disorder, unspecified; G47.33 Obstructive sleep apnea (adult) (pediatric); F32.A Depression, unspecified; Z20.822 Contact with and (suspected) exposure to COVID-19; Z87.891 Personal history of nicotine dependence; Z92.3 Personal history of irradiation; Z79.899 Other long term (current) drug therapy; Z79.82 Long term (current) use of aspirin; Y73.8 Miscellaneous gastroenterology and urology devices associated with adverse incidents, not elsewhere classified
CPT/HCPCS: 36415; 71045; 74018; 74177; 80048; 80053; 81001; 82962; 83605; 85025; 85610; 85730; 87040; 87077; 87086; 87088; 87186; 87428; 93005; 94640; 97110; 97116; 97162; 97166; 97530; 97535; 99285; J7030; Q9967; A4216; J0696; J2405

== ENCOUNTER 2021-11-17 11:53 | Outpatient (CLI) | payer MEDICARE, OTHER, SELFPAY ==
[2021-11-17 12:50] LABS: Anion Gap 6 (5-15); BUN 17 mg/dL (7-18); BUN/Creat Ratio 18.7 RATIO (10-20); Calcium,Total 8.9 mg/dL (8.5-10.1); Chloride 99 mmol/L (98-107); Creatinine, Serum 0.91 mg/dL (0.70-1.30); EST Glomerular Filtration Rate 88 mL/min (>60); Est Glom Filt Rate - Afr Amer 106 mL/min (>60); Glucose 157 mg/dL (74-106); Potassium 3.9 mmol/L (3.5-5.1); Sodium Level 135 mmol/L (136-145)
== END 2021-11-17 23:59 | disposition home or self-care (01) ==
LOC: POLAB3 11:58
PROVIDERS: PCP Family Medicine Geriatric Medicine; Visit Provider Family Medicine Geriatric Medicine
DX: E87.6 Hypokalemia (principal)
CPT/HCPCS: 36415; 80048

== ENCOUNTER → 2021-12-07 | Outpatient (CLI) | payer MEDICARE, OTHER, SELFPAY ==
[2021-12-07 17:15] LABS: Absolute Lymphocyte Count 1.23 X10^3/uL (0.83-4.51); Absolute Neutrophil Count 4.3 X10^3/uL (2.0-7.7); Basophil# 0.03 X10^3/uL; Basophil% 0.5 % (0-1); Eosinophil# 0.35 X10^3/uL; Eosinophils% 5.6 % (0-5); Hematocrit 37.9 % (40-54); Hemoglobin 12.2 g/dL (13.0-16.5); Lymphocyte # 1.23 X10^3/ul (0.83-4.51); Lymphocyte % 19.6 % (19-41); Mean Corp Hgb Conc 32.2 g/dL (32-36); Mean Corpuscular Hgb 24.6 pg (27.0-32.0); Mean Corpuscular Volume 76.4 fL (80-94); Mean Platelet Vol. 10.2 fl (6.2-12.0); Monocyte# 0.38 X10^3/uL; Monocyte% 6.1 % (0-10); NRBC Flagged by Analyzer 0 % (0-5); Neutrophil # 4.27 X10^3/uL (2.7-7.7); Neutrophil % 67.9 % (47-70); Platelet Count 180 K/mm3 (150-450); RBC Distribution Width CV 17.4 % (11.6-14.6); Red Blood Count 4.96 M/mm3 (4.6-6.2); White Blood Count 6.3 K/mm3 (4.4-11.0)
[2021-12-07 17:26] LABS: Vitamin D,25 Hydroxy 24.4 ng/mL
[2021-12-07 17:34] LABS: ALB/GLOB Ratio 0.9 RATIO (0.9-2.4); AST(SGOT) 19 U/L (15-37); Alanine Aminotransfer ALT/SGPT 36 U/L (16-61); Albumin, Serum 3.4 g/dL (3.2-5.0); Alkaline Phosphatase 64 U/L (45-117); Anion Gap 7 (5-15); BUN 14 mg/dL (7-18); BUN/Creat Ratio 14.4 RATIO (10-20); Calcium,Total 9.3 mg/dL (8.5-10.1); Chloride 101 mmol/L (98-107); Creatinine, Serum 0.97 mg/dL (0.70-1.30); EST Glomerular Filtration Rate 81 mL/min (>60); Est Glom Filt Rate - Afr Amer 98 mL/min (>60); Globulin 3.6 g/dL (2.2-4.2); Glucose 181 mg/dL (74-106); Potassium 4.2 mmol/L (3.5-5.1); Sodium Level 137 mmol/L (136-145); Thyroid Stim Hormone (TSH) 1.26 uIU/mL (0.358-3.74)
== END | disposition home or self-care (01) ==
LOC: POLAB3 15:05
PROVIDERS: PCP Family Medicine Geriatric Medicine; Visit Provider Family Medicine Geriatric Medicine
DX: E11.65 Type 2 diabetes mellitus with hyperglycemia (principal); E55.9 Vitamin D deficiency, unspecified; R53.83 Other fatigue
CPT/HCPCS: 36415; 80053; 82306; 84443; 85025

== ENCOUNTER 2022-03-08 13:24 | Emergency (ER) | payer MEDICARE, OTHER, SELFPAY ==
[2022-03-08 13:25] VITALS: BP 160/64; PULSE 86; RESP 18; TEMP 37.2; O2SAT 95; BMI 42.3
[2022-03-08 13:51] VITALS: BP 169/77; PULSE 71; RESP 24; TEMP 36.7; O2SAT 94
--- NOTE | 2022-03-08 14:18 | EKG12_ITS ---
Test Reason : CATHETER Blood Pressure : / mmHG Vent. Rate : 071 BPM Atrial Rate : 071 BPM P-R Int : 254 ms QRS Dur : 082 ms QT Int : 388 ms P-R-T Axes : 009 -47 058 degrees QTc Int : 421 ms Sinus rhythm with 1st degree A-V block Left axis deviation Cannot rule out Inferior infarct , age undetermined Abnormal ECG Confirmed by NEEL ESPITIA, CJ ([id number]), legal editor JULY PELAYO ([id number]) on 03/11/2022 2:01:12 PM Referred By: BETTY Confirmed By:CJ SHAIKH MD
--- NOTE | 2022-03-08 14:26 | EDS_ITS ---
HPI History of Present Illness Chief Complaint: Steiner C/O Narrative Narrative: 71-year-old male with history of prostate cancer and previous indwelling Steiner catheters presenting for evaluation of a failing suprapubic catheter which he has had. He states that his is a nurse and she is able to change this typically and has not been able to get any drainage out of it for a few days. He states that he was here yesterday and Dr. Mcdonough's nurse practitioner came and change this however he still not have any drainage. He is having normal urination to his urethra but he states that he is not able to control this and he just urinates on himself. He states he chronically has low-grade fevers in the afternoons anywhere from 99-1 01 Fahrenheit. He states that oncology does not want to get concerned until he is over 101 Fahrenheit. relates a history of sepsis and does not want to wait until his temperature goes up. He is not febrile today. He feels otherwise well. He complains of some suprapubic fullness. There is no drainage from his suprapubic catheter site. [facility] Medical History Bladder disease Bruising Cancer COPD (chronic obstructive pulmonary disease) CPAP (continuous positive airway pressure) dependence Depression Diabetes Dietary restriction Former smoker High cholesterol History of cataract History of diverticulitis History of edema History of stress test Hypertension Indwelling urethral catheter present Insulin dependent diabetes mellitus Mediastinal lymphadenopathy Prostate disease Recurrent malignant neoplasm of prostate Restless legs Shortness of breath on exertion Sleep apnea Suprapubic catheter Wears glasses Wears hearing aid Home Medications albuterol sulfate 90 mcg/actuation aerosol inhaler (ProAir HFA) 1 puff inhalation Q6H PRN PRN Bronchodialation 05/31/17 [History Last Taken 11/13/21 09:00] hydrochlorothiazide 25 mg tablet 25 mg PO DAILY diuretic 05/31/17 [History Last Taken 11/12/21 09:00] insulin glargine 100 unit/mL (3 mL) subcutaneous pen (Lantus Solostar U-100 Insulin) 80 unit subcut BID diabetes 05/31/17 [History Last Taken 11/13/21 09:00] insulin lispro 100 unit/mL subcutaneous pen (Humalog KwikPen (U-100) Insulin) 70 units subcut TID diabetes 05/31/17 [History Last Taken 11/13/21 12:00] lisinopril 20 mg tablet 20 mg PO BID BP 05/31/17 [History Last Taken 11/12/21 09:00] metformin 1,000 mg tablet 1,000 mg PO BID diabetes 05/31/17 [History Last Taken 11/12/21 09:00] simvastatin 40 mg tablet 40 mg PO QHS cholesterol 05/31/17 [History Last Taken 11/11/21 21:00] aspirin 81 mg tablet,delayed release 81 mg PO DAILY health maintenance 09/19/17 [History Last Taken 11/12/21 09:00] pramipexole 0.5 mg tablet (Mirapex) 1 mg PO QHS restless legs 09/19/17 [History Last Taken 11/11/21 21:00] citalopram 20 mg tablet 20 mg PO DAILY depression 11/13/21 [History Last Taken 11/12/21 09:00] primidone 50 mg tablet 100 mg PO QHS shaking 11/13/21 [History Last Taken 11/11/21 21:00] solifenacin 10 mg tablet 10 mg PO DAILY bladder 11/13/21 [History Last Taken 11/12/21 09:00] cephalexin 500 mg capsule 500 mg PO TID #21 caps 11/16/21 [Rx Last Taken Unknown] sennosides 8.6 mg-docusate sodium 50 mg tablet (Senna-S) 2 tab-cap PO QHS 11/23/21 [History Last Taken Unknown] fluticasone fur. 200 mcg-umeclid 62.5 mcg-vilant 25 mcg inhalat.powder (Trelegy Ellipta) 1 inh inhalation Q24H 02/22/22 [History Last Taken Unknown] magnesium hydroxide 400 mg/5 mL oral suspension (Milk of Magnesia) 5 ml PO DAILY PRN 02/22/22 [History Last Taken Unknown] phenazopyridine 100 mg tablet (Pyridium) 100 mg PO TID PRN 02/22/22 [History Last Taken Unknown] polyethylene glycol 3350 17 gram oral powder packet (Miralax) 17 g PO DAILY 02/22/22 [History Last Taken Unknown] oxybutynin chloride 10 mg tablet,extended release 24 hr 10 mg PO DAILY #30 tabs 03/08/22 [Rx Last Taken Unknown] Allergy/AdvReac Type Severity Reaction Status Date / Time No Known Allergies Allergy Verified 03/08/22 13:28 Family History Father Diabetes Mother Heart disease Surgical History History of eye surgery History of implantation of artificial sphincter Social History Smoking Status: Former smoker Tobacco: How many years used: 20 how long ago did patient quit smokin years ago, was smoking two packs per day. alcohol intake: former ROS ROS ED Constitutional Constitutional ED: Reports fever(s); Denies chills Eyes Eyes: Denies change in vision ENT ENT ED: Reports rhinorrhea; Denies sore throat Cardiovascular Cardiovascular: Denies chest pain or palpitations Respiratory/Chest Respiratory/Chest: Denies cough or dyspnea Gastrointestinal Gastrointestinal: Reports abdominal pain; Denies nausea or vomiting Genitourinary Genitourinary ED: Reports other Details: Poor suprapubic catheter drainage. Bladder incontinence. Musculoskeletal Musculoskeletal: Denies arthralgias or back pain Integumentary Denies abscess Neurologic Neurologic: Denies headache(s) EXAM Physical Exam Const Vital Signs: 03/08/22 13:25 03/08/22 13:51 03/08/22 14:35 Temperature 98.9 F 98.1 F 97.7 F L Temperature Source Temporal Oral Oral Pulse Rate 86 71 72 Respiratory Rate 18 24 H 16 Blood Pressure 160/64 H 169/77 H 170/72 H Blood Pressure Mean 96 107 104 Pulse Ox 95 94 94 Oxygen Delivery Method Room Air Room Air Room Air 03/08/22 14:35 03/08/22 14:35 03/08/22 14:39 Temperature 97.7 F L 97.7 F L Temperature Source Oral Oral Pulse Rate 72 Respiratory Rate 14 Blood Pressure 170/72 H Blood Pressure Mean 104 Pulse Ox 94 Oxygen Delivery Method Room Air Room Air 03/08/22 16:13 03/08/22 16:13 03/08/22 16:13 Temperature 97.9 F 97.9 F 97.9 F Temperature Source Oral Oral Oral Pulse Rate 70 71 Respiratory Rate 15 19 H Blood Pressure 145/62 H 154/62 H Blood Pressure Mean 89 92 Pulse Ox 98 96 Oxygen Delivery Method Room Air Room Air 03/08/22 17:03 Temperature Temperature Source Pulse Rate 72 Respiratory Rate 16 Blood Pressure 153/69 H Blood Pressure Mean Pulse Ox 96 Oxygen Delivery Method Positive well nourished and obese General Appearance ED: NAD Nutritional Appearance: obese HEENT Reports moist mucous membranes normocephalic Eyes PERRL and EOMs intact bilaterally Resp normal respiratory effort and clear to auscultation bilaterally Auscultation: Negative for rales or rhonchi Cardio regular rate and regular rhythm GI GI Narrative: Suprapubic tenderness. Suprapubic catheter site is free of drainage. There is no surrounding erythema or induration. Neuro oriented x3 and CN's II-XII intact bilaterally Sensorium / Orientation: alert Psych mental status grossly normal MDM MDM MDM Narrative Medical decision making narrative: 71-year-old male presenting with suprapubic catheter dysfunction. He states it is draining slightly but mostly he is incontinent of urine through his penis. He does have a history of prostate cancer. After repeated changes of his Steiner catheter it was determined he would have a suprapubic catheter. This was nonfunctioning yesterday in office with Dr. Mcdonough. Patient also complains of fevers nearly every day from 99-101 and was told that he does not need to worry unless his temperature goes above 101. He has not. He feels generally well. Is some suprapubic fullness but otherwise. No pain. Patient declined analgesia. Given his fevers and history of cancer as well as sepsis septic work-up was pursued. EKG shows a normal sinus rhythm with a ventricular rate of 71 bpm without sign of ischemic change or dysrhythmia. Rapid COVID is negative. Chest x-ray my interpretation shows no acute cardiopulmonary process 3 subsequently CBC shows no leukocytosis. Hemoglobin hematocrit are stable. Coa gulation studies normal. Lactic acid within normal limits at 1.6. Renal function electrolytes are normal. Glucose slightly elevated at 229 without anion gap. Urine with 150 occult blood, 500 leukocyte esterase, 5-10 RBCs, 0-5 WBCs. No bacteria seen. Spoke with Dr. Mcdonough who recommended imaging to see if the Steiner catheter was in place and it is on the CAT scan. There is no other significant new findings. Dr. Mcdonough came to see the patient in the room and after twisting the suprapubic catheter counterclockwise this does appear to flow. He suspects that may be the sidehole was blocked This is now flowing consistently. Patient did complain of some suprapubic cramping and Dr. Mcdonough recommended given him oxybutynin. This was provided. Since his blood work-up and CAT scan are ultimately normal he can be discharged home. He is given return precautions. Impression: 1. History of febrile illness 2. Suprapubic catheter malfunction 3. Abdominal pain 4. Urinary incontinence Lab Data Attestation: I reviewed the patient's lab results. Labs: Laboratory Results - last 24 hr 03/08/22 03/08/22 03/08/22 14:25 14:35 14:35 WBC 9.4 RBC 4.85 Hgb 12.0 L Hct 38.2 L MCV 78.8 L MCH 24.7 L MCHC 31.4 L RDW Std Deviation 46.5 H RDW Coeff of Bhavin 16.5 H Plt Count 224 MPV 9.2 Immature Gran % (Auto) 0.400 Neut % (Auto) 68.4 Lymph % (Auto) 16.7 L Blaine % (Auto) 6.9 Eos % (Auto) 7.2 H Baso % (Auto) 0.4 Absolute Neuts (auto) 6.4 Absolute Lymphs (auto) 1.57 Nucleated RBC % 0 PT 13.3 INR 1.0 APTT 31.3 Sodium Potassium Chloride Carbon Dioxide Anion Gap BUN Creatinine Estim Creat Clear Calc Est GFR (MDRD) Af Amer Est GFR (MDRD) Non-Af BUN/Creatinine Ratio Glucose Lactic Acid 1.6 Calcium Total Bilirubin AST ALT Alkaline Phosphatase Troponin I High Sens Total Protein Albumin Globulin Albumin/Globulin Ratio Urine Color Urine Clarity Urine pH Ur Specific [place] Urine Protein Urine Glucose (UA) Urine Ketones Urine Occult Blood Urine Nitrite Urine Bilirubin Urine Urobilinogen Ur Leukocyte Esterase Urine RBC Urine WBC Ur Squamous Epith Cells Urine Bacteria Urine Mucus 03/08/22 03/08/22 14:35 15:15 WBC RBC Hgb Hct MCV MCH MCHC RDW Std Deviation RDW Coeff of Bhavin Plt Count MPV Immature Gran % (Auto) Neut % (Auto) Lymph % (Auto) Blaine % (Auto) Eos % (Auto) Baso % (Auto) Absolute Neuts (auto) Absolute Lymphs (auto) Nucleated RBC % PT INR APTT Sodium 132 L Potassium 4.4 Chloride 96 L Carbon Dioxide 31.0 Anion Gap 5 BUN 16 Creatinine 0.92 Estim Creat Clear Calc 78.25 Est GFR (MDRD) Af Amer 105 Est GFR (MDRD) Non-Af 87 BUN/Creatinine Ratio 17.4 Glucose 229 H Lactic Acid Calcium 8.6 Total Bilirubin 0.20 AST 19 ALT 26 Alkaline Phosphatase 65 Troponin I High Sens 14 Total Protein 7.3 Albumin 3.1 L Globulin 4.2 Albumin/Globulin Ratio 0.7 L Urine Color Yellow Urine Clarity Sl. Cloudy Urine pH 8.0 Ur Specific [place] 1.015 Urine Protein 30 H Urine Glucose (UA) Normal Urine Ketones Negative Urine Occult Blood 150 H Urine Nitrite Negative Urine Bilirubin Negative Urine Urobilinogen Normal Ur Leukocyte Esterase 500 H Urine RBC 5-10 SEEN Urine WBC 0-5 SEEN Ur Squamous Epith Cells 0 SEEN Urine Bacteria 0 SEEN Urine Mucus 0 SEEN Radiography Diagnostic Testing: Clinical Impression(s) from Imaging Studies Abdomen/Pelvis CT 03/08/22 14:28 IMPRESSION: Diffuse irregular bladder wall thickening. Stable bilateral renal cysts. Diffuse fatty infiltration of the liver. A suprapubic catheter is seen within the urinary bladder. A neoplastic process should be ruled out. Electronically Signed: Ismael Manuel MD at 15:59 EDT , Discharge Plan Triage Chief Complaint: Steiner C/O ED Provider: Olman Glez Dx/Rx/DC Orders Instructions: ED Steiner Catheter, Care Prescriptions: New oxybutynin chloride 10 mg tablet extended release 24hr 10 mg PO DAILY Qty: 30 0RF No Action sennosides-docusate sodium [Senna-S] 8.6-50 mg tablet 2 tab-cap PO QHS Trelegy Ellipta 200-62.5-25 mcg blister with device 1 inh inhalation Q24H phenazopyridine [Pyridium] 100 mg tablet 100 mg PO TID PRN polyethylene glycol 3350 [Miralax] 17 gram powder in packet 17 g PO DAILY magnesium hydroxide [Milk of Magnesia] 400 mg/5 mL suspension 5 ml PO DAILY PRN lisinopril 20 MG tablet 20 mg PO BID Label Comments: simvastatin 40 MG tablet 40 mg PO QHS Label Comments: metformin 1,000 MG tablet 1,000 mg PO BID Label Comments: hydrochlorothiazide 25 MG tablet 25 mg PO DAILY Label Comments: albuterol sulfate [ProAir HFA] 1 PUFF inhaler 1 puff inhalation Q6H PRN PRN (Reason: Bronchodialation) Label Comments: TAKE 2 PUFFS EVERY 6 HOURS, NEEDED FOR WHEEZING, SHORTNESS OF BREATH insulin lispro [Humalog KwikPen Insulin] 100 UNIT/ML insulin pen 70 units subcut TID Label Comments: Lantus Solostar U-100 Insulin 100 UNITS/ML insulin pen 80 unit subcut BID Label Comments: aspirin 81 MG tablet,delayed release (DR/EC) 81 mg PO DAILY Hold Instructions: Resume on 05/12/21. pramipexole [Mirapex] 0.5 MG tablet 1 mg PO QHS primidone 50 mg tablet 100 mg PO QHS Label Comments: TAKE TWO TABLETS BY MOUTH ONCE DAILY AT BEDTIME citalopram 20 mg tablet 20 mg PO DAILY solifenacin 10 mg Tablet 10 mg PO DAILY cephalexin 500 mg capsule 500 mg PO TID Qty: 21 0RF Primary Care Provider: Sachin Dominguez Chi Referrals: Max Mcdonough MD [Med Staff - Active Staff] - As Needed Sachin Dominguez Chi, MD [Primary Care Provider] - Disposition Disposition: Home, Self Care
--- NOTE | 2022-03-08 14:28 | CT_ITS ---
STUDY: CT ABDOMEN AND PELVIS WITH CONTRAST REASON FOR EXAM: Male, 71 years old. Suprapubic pain RADIATION DOSAGE (If Supplied By Facility): CTDIvol = ( 18.28 ) mGy, DLP = ( 2172.67 ) mGycm TECHNIQUE: Transaxial images were obtained from the dome of the diaphragm to the symphysis pubis without oral contrast. IV 100mL Isovue-300 was administered. Sagittal and coronal images were reconstructed. Individualized dose optimization techniques were used for this CT. COMPARISON: Comparison is made with prior study 11/13/2021. FINDINGS: Stable mild increased markings at the lung bases suggestive of scarring. Coronary artery calcification. There is decreased attenuation of the liver consistent with steatosis. Mild hepatomegaly. Normal gallbladder and extrahepatic biliary system. Normal spleen. Normal pancreas. Normal bilateral adrenal glands. Stable right renal cysts more prominent in the lower pole. Stable left renal cysts. Normal visualized stomach. Normal small intestine. Normal colon. The appendix is visualized and appears normal. There is diffuse atherosclerotic calcification of the abdominal aorta, without a demonstrated aneurysm. Normal inferior vena cava. Normal retroperitoneum. A suprapubic catheter is seen within the urinary bladder. There is diffuse irregular lateral wall thickening. Mild increased markings in the surrounding peritoneal fat. A neoplastic process should be ruled out. There has been essentially no change since prior study. There are prostatic calcifications. Normal abdominal wall. There are degenerative changes of the visualized lumbar spine. CT/Abdomen/Pelvis W IV Cont ONLY IMPRESSION: Diffuse irregular bladder wall thickening. Stable bilateral renal cysts. Diffuse fatty infiltration of the liver. A suprapubic catheter is seen within the urinary bladder. A neoplastic process should be ruled out. Electronically Signed: Ismael Manuel MD at 15:59 EDT ,
[2022-03-08 14:35] VITALS: BP 170/72; PULSE 72; RESP 16; TEMP 36.5; O2SAT 94
[2022-03-08 14:39] VITALS: BP 170/72; PULSE 72; RESP 14; TEMP 36.5; O2SAT 94
[2022-03-08 14:57] LABS: Absolute Lymphocyte Count 1.57 X10^3/uL (0.83-4.51); Absolute Neutrophil Count 6.4 X10^3/uL (2.0-7.7); Basophil# 0.04 X10^3/uL; Basophil% 0.4 % (0-1); Eosinophil# 0.68 X10^3/uL; Eosinophils% 7.2 % (0-5); Hematocrit 38.2 % (40-54); Lymphocyte # 1.57 X10^3/ul (0.83-4.51); Lymphocyte % 16.7 % (19-41); Mean Corp Hgb Conc 31.4 g/dL (32-36); Mean Corpuscular Hgb 24.7 pg (27.0-32.0); Mean Corpuscular Volume 78.8 fL (80-94); Mean Platelet Vol. 9.2 fl (6.2-12.0); Monocyte# 0.65 X10^3/uL; Monocyte% 6.9 % (0-10); NRBC Flagged by Analyzer 0 % (0-5); Neutrophil % 68.4 % (47-70); Platelet Count 224 K/mm3 (150-450); RBC Distribution Width CV 16.5 % (11.6-14.6); RBC Distribution Width SD 46.5 fl (35.1-43.9); Red Blood Count 4.85 M/mm3 (4.6-6.2); White Blood Count 9.4 K/mm3 (4.4-11.0)
[2022-03-08 15:03] LABS: Prothrombin Time (Protime)PT. 13.3 SECONDS (11.7-14.9)
[2022-03-08 15:13] LABS: ALB/GLOB Ratio 0.7 RATIO (0.9-2.4); AST(SGOT) 19 U/L (15-37); Alanine Aminotransfer ALT/SGPT 26 U/L (16-61); Albumin, Serum 3.1 g/dL (3.2-5.0); Alkaline Phosphatase 65 U/L (45-117); Anion Gap 5 (5-15); BUN 16 mg/dL (7-18); BUN/Creat Ratio 17.4 RATIO (10-20); Calcium,Total 8.6 mg/dL (8.5-10.1); Chloride 96 mmol/L (98-107); Creatinine, Serum 0.92 mg/dL (0.70-1.30); EST Glomerular Filtration Rate 87 mL/min (>60); Est Glom Filt Rate - Afr Amer 105 mL/min (>60); Estimated Creatinine Clearance 78.25 ml/min; Globulin 4.2 g/dL (2.2-4.2); Glucose 229 mg/dL (74-106); Potassium 4.4 mmol/L (3.5-5.1); Protein, Total 7.3 g/dL (6.4-8.2); Sodium Level 132 mmol/L (136-145); Troponin-I HS 14 pg/mL (3.0-78.0)
[2022-03-08 15:14] LABS: Lactic Acid 1.6 mmol/L (0.4-1.9)
[2022-03-08 15:17] LABS: Bacteria 0 SEEN /hpf (None Seen); Mucous, Urine 0 SEEN /hpf (<or=2+); Squamous Epithelial Cells - UA 0 SEEN /hpf (0-5)
[2022-03-08] MEDS: 0.9% Normal Saline 1,000 ML 999 ML IV (15:19)
[2022-03-08 15:23] LABS: Partial Thromboplast Time 31.3 Seconds (24.1-36.2)
[2022-03-08 15:27] LABS: Color, Urine Yellow (Yellow); Glucose, Dipstick Normal (Normal); Ketone-Dipstick Negative (Negative); Leukocyte Esterase-Dipstick 500 /ul (Negative); Nitrite-Dipstick Negative (Negative); Occult Blood-Urine 150 /ul (Negative); Protein-Dipstick 30 mg/dl (Negative); Specific Gravity, Urine 1.015 (1.002-1.030); Urine Bilirubin Dipstick Negative (Negative); Urine Clarity Sl. Cloudy (Clear); Urine Urobilinogen Normal (Normal)
[2022-03-08 15:36] LABS: Red Blood Cells-Urine 5-10 SEEN /hpf (0-5)
[2022-03-08 15:38] LABS: White Blood Cells 0-5 SEEN /hpf (0-5)
--- NOTE | 2022-03-08 15:47 | RAD_ITS ---
STUDY: X-RAY CHEST REASON FOR EXAM: Male, 71 years old. fever TECHNIQUE: Single frontal view of the chest. COMPARISON: 11/13/2021. FINDINGS: The lungs are clear and expanded. There is no demonstrated pleural abnormality. Normal size heart. Normal mediastinum and sona. Normal visualized pulmonary arteries. Normal visualized aortic arch and descending thoracic aorta. Normal visualized thoracic spine. Normal visualized ribs, clavicles, and shoulders. There is no demonstrated abnormality of the visualized soft tissue structures of the upper abdomen. RAD/Chest 1 View (Portable) IMPRESSION: Normal x-ray examination of the chest. Electronically Signed: Herberth Muhammad MD at 18:02 EDT ,
[2022-03-08 16:13] VITALS: BP 145/62; BP 154/62; PULSE 70; PULSE 71; RESP 15; RESP 19; TEMP 36.6; O2SAT 96; O2SAT 98
[2022-03-08] MEDS: Tolterodine Tartrate 2 MG CAP.SA PO (17:01)
[2022-03-08 17:03] VITALS: BP 153/69; PULSE 72; RESP 16; O2SAT 96
== END 2022-03-08 17:09 | disposition home or self-care (01) ==
PROVIDERS: Emergency Provider Student in an Organized Health Care Education/Training Program; PCP Family Medicine Geriatric Medicine; Visit Provider Student in an Organized Health Care Education/Training Program
DX: T83.89XA Other specified complication of genitourinary prosthetic devices, implants and grafts, initial encounter (principal); R32 Unspecified urinary incontinence; R10.9 Unspecified abdominal pain; G47.30 Sleep apnea, unspecified; E66.9 Obesity, unspecified; Z87.891 Personal history of nicotine dependence; X58.XXXA Exposure to other specified factors, initial encounter
CPT/HCPCS: 71045; 74177; 80053; 81001; 83605; 84484; 85025; 85610; 85730; 87040; 87086; 87088; 87811; 93005; 99285; J7030; Q9967; A4216

== ENCOUNTER → 2022-03-16 | Outpatient (CLI) | payer MEDICARE, OTHER, SELFPAY ==
[2022-03-16 12:37] LABS: Absolute Lymphocyte Count 1.52 X10^3/uL (0.83-4.51); Absolute Neutrophil Count 6.2 X10^3/uL (2.0-7.7); Basophil# 0.04 X10^3/uL; Basophil% 0.4 % (0-1); Eosinophil# 0.55 X10^3/uL; Eosinophils% 6.2 % (0-5); Hematocrit 37.5 % (40-54); Hemoglobin 12.1 g/dL (13.0-16.5); Lymphocyte # 1.52 X10^3/ul (0.83-4.51); Lymphocyte % 17.1 % (19-41); Mean Corp Hgb Conc 32.3 g/dL (32-36); Mean Corpuscular Hgb 25.5 pg (27.0-32.0); Mean Corpuscular Volume 79.1 fL (80-94); Mean Platelet Vol. 9.7 fl (6.2-12.0); Monocyte# 0.55 X10^3/uL; Monocyte% 6.2 % (0-10); NRBC Flagged by Analyzer 0 % (0-5); Neutrophil % 69.7 % (47-70); Platelet Count 313 K/mm3 (150-450); RBC Distribution Width CV 16.4 % (11.6-14.6); RBC Distribution Width SD 47.3 fl (35.1-43.9); Red Blood Count 4.74 M/mm3 (4.6-6.2); White Blood Count 8.9 K/mm3 (4.4-11.0)
[2022-03-16 13:12] LABS: Vitamin D,25 Hydroxy 27.7 ng/mL
[2022-03-16 13:36] LABS: ALB/GLOB Ratio 0.6 RATIO (0.9-2.4); AST(SGOT) 17 U/L (15-37); Alanine Aminotransfer ALT/SGPT 22 U/L (16-61); Albumin, Serum 2.8 g/dL (3.2-5.0); Alkaline Phosphatase 69 U/L (45-117); Anion Gap 6 (5-15); BUN 24 mg/dL (7-18); BUN/Creat Ratio 24.6 RATIO (10-20); Calcium,Total 8.6 mg/dL (8.5-10.1); Chloride 94 mmol/L (98-107); Creatinine, Serum 0.98 mg/dL (0.70-1.30); EST Glomerular Filtration Rate 81 mL/min (>60); Est Glom Filt Rate - Afr Amer 98 mL/min (>60); Globulin 4.8 g/dL (2.2-4.2); Glucose 150 mg/dL (74-106); Potassium 3.9 mmol/L (3.5-5.1); Protein, Total 7.6 g/dL (6.4-8.2); Sodium Level 131 mmol/L (136-145)
== END | disposition home or self-care (01) ==
LOC: POLAB3 09:06
PROVIDERS: PCP Family Medicine Geriatric Medicine; Visit Provider Family Medicine Geriatric Medicine
DX: I10 Essential (primary) hypertension (principal); E55.9 Vitamin D deficiency, unspecified; N39.0 Urinary tract infection, site not specified
CPT/HCPCS: 36415; 80053; 82306; 84443; 85025; 87086

== ENCOUNTER 2022-05-17 07:39 | Outpatient (CLI) | payer MEDICARE, OTHER, SELFPAY ==
--- NOTE | 2022-05-17 07:58 | CT_ITS ---
INDICATION: Known prostate cancer, follow-up EXAMINATION: CT CHEST WITH CONTRAST - CT Chest W/ Contrast Injection TECHNIQUE: Helically acquired images were obtained of the chest following IV contrast. A radiation dose optimization technique was used for this scan. IV Contrast dosage and agent: 100 mL ISOVUE 300 contrast COMPARISON: PET study from 11/10/2021 FINDINGS: LUNGS, PLEURA AND LARGE AIRWAYS: Lung windows show the lungs to be normally expanded. Stable nonspecific pleural thickening noted in both hemithoraces. There is no superimposed infiltrate, or noncalcified mass or nodule, minimal likely chronic atelectasis in the lung bases. No pneumothorax. THYROID: No thyroid lesions. HEART AND PERICARDIUM: Heart size is normal. No pericardial effusion. Calcified coronary vessels noted. VESSELS: Thoracic aorta is not dilated. No aortic dissection. No obvious central pulmonary embolism although this study was not performed with the pulmonary embolism protocol. MEDIASTINUM AND JUANCHO: No suspicious axillary adenopathy. There is a stable borderline enlarged AP window lymph node on axial image 48 measuring 1.38 cm in short axis dimension unchanged from the previous PET study. No other suspicious mediastinal lymph nodes. No suspicious axillary adenopathy. UPPER ABDOMEN: Limited cuts through the upper abdomen show fatty infiltration of the liver without a discrete lesion. Stable simple left renal cysts. BONES: Bony structures show degenerative change CT/Chest WITH Contrast IMPRESSION: Stable borderline enlarged AP window lymph node again measuring approximately 1.38 cm in short axis dimension. No interval change since the previous PET study from 11/10/2021. No new suspicious mediastinal, perihilar, or axillary adenopathy No acute pulmonary process Degenerative bony changes Fatty liver Simple left renal cysts, no specific follow-up needed Electronically Signed: Remi Baron MD at 8:47 EDT ,
[2022-05-17 08:06] LABS: Absolute Lymphocyte Count 2.04 X10^3/uL (0.83-4.51); Basophil# 0.06 X10^3/uL; Basophil% 0.7 % (0-1); Eosinophil# 0.68 X10^3/uL; Eosinophils% 8.2 % (0-5); Hematocrit 40.9 % (40-54); Hemoglobin 12.8 g/dL (13.0-16.5); Lymphocyte # 2.04 X10^3/ul (0.83-4.51); Lymphocyte % 24.5 % (19-41); Mean Corp Hgb Conc 31.3 g/dL (32-36); Mean Corpuscular Hgb 24.7 pg (27.0-32.0); Mean Platelet Vol. 9.3 fl (6.2-12.0); Monocyte# 0.51 X10^3/uL; Monocyte% 6.1 % (0-10); NRBC Flagged by Analyzer 0 % (0-5); Neutrophil # 5.01 X10^3/uL (2.7-7.7); Neutrophil % 60.1 % (47-70); Platelet Count 212 K/mm3 (150-450); RBC Distribution Width CV 16.5 % (11.6-14.6); RBC Distribution Width SD 47.1 fl (35.1-43.9); Red Blood Count 5.18 M/mm3 (4.6-6.2); White Blood Count 8.3 K/mm3 (4.4-11.0)
[2022-05-17 08:26] LABS: CREATININE FINGERSTICK < 0.9 mg/dL (0.70-1.30); EGFR FINGERSTICK > 60.0000 mL/min (>60)
[2022-05-17 08:28] LABS: ALB/GLOB Ratio 0.8 RATIO (0.9-2.4); AST(SGOT) 12 U/L (15-37); Alanine Aminotransfer ALT/SGPT 20 U/L (16-61); Albumin, Serum 3.5 g/dL (3.2-5.0); Alkaline Phosphatase 62 U/L (45-117); Anion Gap 8 (5-15); BUN 15 mg/dL (7-18); BUN/Creat Ratio 15.7 RATIO (10-20); Calcium,Total 9.2 mg/dL (8.5-10.1); Chloride 100 mmol/L (98-107); Creatinine, Serum 0.96 mg/dL (0.70-1.30); EST Glomerular Filtration Rate 83 mL/min (>60); Est Glom Filt Rate - Afr Amer 100 mL/min (>60); Globulin 4.2 g/dL (2.2-4.2); Glucose 89 mg/dL (74-106); LDH 163 U/L (87-241); Potassium 3.6 mmol/L (3.5-5.1); Protein, Total 7.7 g/dL (6.4-8.2); Sodium Level 140 mmol/L (136-145)
== END 2022-05-17 23:59 | disposition home or self-care (01) ==
PROVIDERS: PCP Family Medicine Geriatric Medicine; Referring Provider Internal Medicine Hematology & Oncology; Visit Provider Internal Medicine Hematology & Oncology
DX: R59.0 Localized enlarged lymph nodes (principal); C61 Malignant neoplasm of prostate
CPT/HCPCS: 36415; 71260; 80053; 83615; 84153; 85025; J7040; Q9967; A4216

== ENCOUNTER → 2022-06-14 | Outpatient (CLI) | payer MEDICARE, OTHER, SELFPAY ==
[2022-06-14 16:06] LABS: Absolute Neutrophil Count 4.1 X10^3/uL (2.0-7.7); Basophil# 0.03 X10^3/uL; Basophil% 0.5 % (0-1); Eosinophil# 0.48 X10^3/uL; Eosinophils% 7.5 % (0-5); Hematocrit 39.1 % (40-54); Hemoglobin 12.6 g/dL (13.0-16.5); Lymphocyte % 21.8 % (19-41); Mean Corp Hgb Conc 32.2 g/dL (32-36); Mean Corpuscular Hgb 25.5 pg (27.0-32.0); Mean Corpuscular Volume 79.1 fL (80-94); Mean Platelet Vol. 9.7 fl (6.2-12.0); Monocyte# 0.36 X10^3/uL; Monocyte% 5.6 % (0-10); NRBC Flagged by Analyzer 0 % (0-5); Neutrophil # 4.12 X10^3/uL (2.7-7.7); Neutrophil % 64.3 % (47-70); Platelet Count 218 K/mm3 (150-450); RBC Distribution Width CV 16.5 % (11.6-14.6); RBC Distribution Width SD 46.9 fl (35.1-43.9); Red Blood Count 4.94 M/mm3 (4.6-6.2); White Blood Count 6.4 K/mm3 (4.4-11.0)
[2022-06-14 16:56] LABS: ALB/GLOB Ratio 0.8 RATIO (0.9-2.4); AST(SGOT) 13 U/L (15-37); Alanine Aminotransfer ALT/SGPT 26 U/L (16-61); Albumin, Serum 3.3 g/dL (3.2-5.0); Alkaline Phosphatase 67 U/L (45-117); Anion Gap 10 (5-15); BUN 14 mg/dL (7-18); BUN/Creat Ratio 15.7 RATIO (10-20); Calcium,Total 8.7 mg/dL (8.5-10.1); Chloride 97 mmol/L (98-107); Creatinine, Serum 0.89 mg/dL (0.70-1.30); EST Glomerular Filtration Rate 90 mL/min (>60); Est Glom Filt Rate - Afr Amer 108 mL/min (>60); Globulin 3.9 g/dL (2.2-4.2); Glucose 171 mg/dL (74-106); Potassium 3.8 mmol/L (3.5-5.1); Protein, Total 7.2 g/dL (6.4-8.2); Sodium Level 137 mmol/L (136-145); Thyroid Stim Hormone (TSH) 1.37 uIU/mL (0.358-3.74)
== END | disposition home or self-care (01) ==
LOC: POLAB3 09:56
PROVIDERS: PCP Family Medicine Geriatric Medicine; Visit Provider Family Medicine Geriatric Medicine
DX: E55.9 Vitamin D deficiency, unspecified (principal); I10 Essential (primary) hypertension
CPT/HCPCS: 36415; 80053; 82306; 84443; 85025

== ENCOUNTER → 2022-09-01 | Outpatient (CLI) | payer MEDICARE, OTHER, SELFPAY | END | disposition home or self-care (01) | LOC: LABSPEC 11:39 | PROVIDERS: PCP Family Medicine Geriatric Medicine; Visit Provider Family Medicine Geriatric Medicine | DX: N39.0 Urinary tract infection, site not specified (principal) | CPT/HCPCS: 87086; 87088 ==

== ENCOUNTER → 2022-09-08 | Outpatient (CLI) | payer MEDICARE, OTHER, SELFPAY ==
[2022-09-08 16:52] LABS: Absolute Lymphocyte Count 1.77 X10^3/uL (0.83-4.51); Absolute Neutrophil Count 5.9 X10^3/uL (2.0-7.7); Basophil# 0.05 X10^3/uL; Basophil% 0.6 % (0-1); Eosinophil# 0.39 X10^3/uL; Eosinophils% 4.6 % (0-5); Hematocrit 43.1 % (40-54); Hemoglobin 13.6 g/dL (13.0-16.5); Lymphocyte # 1.77 X10^3/ul (0.83-4.51); Lymphocyte % 20.7 % (19-41); Mean Corp Hgb Conc 31.6 g/dL (32-36); Mean Corpuscular Hgb 25.3 pg (27.0-32.0); Mean Corpuscular Volume 80.1 fL (80-94); Mean Platelet Vol. 9.9 fl (6.2-12.0); Monocyte# 0.41 X10^3/uL; Monocyte% 4.8 % (0-10); NRBC Flagged by Analyzer 0 % (0-5); Neutrophil % 68.9 % (47-70); Platelet Count 214 K/mm3 (150-450); RBC Distribution Width CV 16.5 % (11.6-14.6); RBC Distribution Width SD 47.3 fl (35.1-43.9); Red Blood Count 5.38 M/mm3 (4.6-6.2); White Blood Count 8.6 K/mm3 (4.4-11.0)
[2022-09-08 17:09] LABS: Vitamin D,25 Hydroxy 18.9 ng/mL
[2022-09-08 17:19] LABS: ALB/GLOB Ratio 0.8 RATIO (0.9-2.4); AST(SGOT) 18 U/L (15-37); Alanine Aminotransfer ALT/SGPT 29 U/L (16-61); Albumin, Serum 3.7 g/dL (3.2-5.0); Alkaline Phosphatase 80 U/L (45-117); Anion Gap 10 (5-15); BUN 15 mg/dL (7-18); BUN/Creat Ratio 15.2 RATIO (10-20); Calcium,Total 9.1 mg/dL (8.5-10.1); Chloride 96 mmol/L (98-107); Creatinine, Serum 0.99 mg/dL (0.70-1.30); EST Glomerular Filtration Rate 80 mL/min (>60); Est Glom Filt Rate - Afr Amer 96 mL/min (>60); Globulin 4.8 g/dL (2.2-4.2); Glucose 173 mg/dL (74-106); Protein, Total 8.5 g/dL (6.4-8.2); Sodium Level 134 mmol/L (136-145); Thyroid Stim Hormone (TSH) 2.45 uIU/mL (0.358-3.74)
== END | disposition home or self-care (01) ==
LOC: POLAB3 13:31
PROVIDERS: PCP Family Medicine Geriatric Medicine; Visit Provider Family Medicine Geriatric Medicine
DX: E55.9 Vitamin D deficiency, unspecified (principal); E11.69 Type 2 diabetes mellitus with other specified complication; I10 Essential (primary) hypertension; Z12.5 Encounter for screening for malignant neoplasm of prostate
CPT/HCPCS: 36415; 80053; 82306; 84153; 84443; 85025; G0103

== ENCOUNTER → 2023-01-16 | Outpatient (CLI) | payer MEDICARE, OTHER, SELFPAY ==
[2023-01-16 18:58] LABS: M R Staph aureus DNA By PCR Negative (Negative); Probe Check PASS; Specimen Processing Control PASS; Staph aureus DNA By PCR POSITIVE (Negative)
== END | disposition home or self-care (01) ==
LOC: LABSPEC 16:18
PROVIDERS: PCP Family Medicine Geriatric Medicine; Referring Provider Family Medicine Geriatric Medicine; Visit Provider Family Medicine Geriatric Medicine
DX: S81.801A Unspecified open wound, right lower leg, initial encounter (principal)
CPT/HCPCS: 87070; 87075; 87077; 87186; 87205; 87640

== ENCOUNTER → 2023-02-14 | Outpatient (CLI) | payer MEDICARE, OTHER, SELFPAY ==
[2023-02-14 17:41] LABS: Absolute Lymphocyte Count 1.65 X10^3/uL (0.83-4.51); Absolute Neutrophil Count 5.8 X10^3/uL (2.0-7.7); Basophil# 0.06 X10^3/uL; Basophil% 0.7 % (0-1); Eosinophil# 0.32 X10^3/uL; Eosinophils% 3.8 % (0-5); Hematocrit 42.1 % (40-54); Hemoglobin 12.8 g/dL (13.0-16.5); Lymphocyte # 1.65 X10^3/ul (0.83-4.51); Lymphocyte % 19.6 % (19-41); Mean Corp Hgb Conc 30.4 g/dL (32-36); Mean Corpuscular Hgb 25.2 pg (27.0-32.0); Mean Corpuscular Volume 82.9 fL (80-94); Mean Platelet Vol. 10.7 fl (6.2-12.0); Monocyte# 0.59 X10^3/uL; NRBC Flagged by Analyzer 0 % (0-5); Neutrophil # 5.76 X10^3/uL (2.7-7.7); Neutrophil % 68.4 % (47-70); Platelet Count 239 K/mm3 (150-450); RBC Distribution Width CV 16.4 % (11.6-14.6); RBC Distribution Width SD 49.3 fl (35.1-43.9); Red Blood Count 5.08 M/mm3 (4.6-6.2); White Blood Count 8.4 K/mm3 (4.4-11.0)
[2023-02-14 17:56] LABS: Anion Gap 6 (5-15); BUN 23 mg/dL (7-18); BUN/Creat Ratio 17.3 RATIO (10-20); Calcium,Total 9.5 mg/dL (8.5-10.1); Chloride 101 mmol/L (98-107); Creatinine, Serum 1.33 mg/dL (0.70-1.30); EST Glomerular Filtration Rate 56 mL/min (>60); Est Glom Filt Rate - Afr Amer 68 mL/min (>60); Glucose 157 mg/dL (74-106); Potassium 4.2 mmol/L (3.5-5.1); Sodium Level 134 mmol/L (136-145)
== END | disposition home or self-care (01) ==
LOC: POLAB3 14:09
PROVIDERS: PCP Family Medicine Geriatric Medicine; Visit Provider Family Medicine Geriatric Medicine
DX: N17.9 Acute kidney failure, unspecified (principal); R31.9 Hematuria, unspecified
CPT/HCPCS: 36415; 80048; 85025; 87077; 87086; 87088; 87186

== ENCOUNTER → 2023-03-06 | Outpatient (CLI) | payer MEDICARE, OTHER, SELFPAY ==
[2023-03-06 18:00] LABS: Absolute Lymphocyte Count 1.74 X10^3/uL (0.83-4.51); Absolute Neutrophil Count 5.6 X10^3/uL (2.0-7.7); Basophil# 0.04 X10^3/uL; Basophil% 0.5 % (0-1); Eosinophil# 0.31 X10^3/uL; Eosinophils% 3.7 % (0-5); Hematocrit 40.6 % (40-54); Lymphocyte # 1.74 X10^3/ul (0.83-4.51); Lymphocyte % 20.9 % (19-41); Mean Corpuscular Hgb 25.8 pg (27.0-32.0); Mean Corpuscular Volume 80.7 fL (80-94); Mean Platelet Vol. 10.5 fl (6.2-12.0); Monocyte# 0.64 X10^3/uL; Monocyte% 7.7 % (0-10); NRBC Flagged by Analyzer 0 % (0-5); Neutrophil # 5.59 X10^3/uL (2.7-7.7); Platelet Count 225 K/mm3 (150-450); RBC Distribution Width CV 17.1 % (11.6-14.6); RBC Distribution Width SD 49.7 fl (35.1-43.9); Red Blood Count 5.03 M/mm3 (4.6-6.2); White Blood Count 8.3 K/mm3 (4.4-11.0)
[2023-03-06 18:18] LABS: BNP,B-Type NATRIURETIC PEPTIDE 11.3 pg/mL (0-100)
[2023-03-06 18:19] LABS: Anion Gap 5 (5-15); BUN 41 mg/dL (7-18); Calcium,Total 9.5 mg/dL (8.5-10.1); Chloride 99 mmol/L (98-107); Creatinine, Serum 1.86 mg/dL (0.70-1.30); EST Glomerular Filtration Rate 38 mL/min (>60); Est Glom Filt Rate - Afr Amer 46 mL/min (>60); Glucose 173 mg/dL (74-106); PSA,Total - Annual Screen 2.39 ng/mL (0.00-4.00); Potassium 4.2 mmol/L (3.5-5.1); Sodium Level 136 mmol/L (136-145)
== END | disposition home or self-care (01) ==
LOC: POLAB3 17:02
PROVIDERS: PCP Family Medicine Geriatric Medicine; Visit Provider Family Medicine Geriatric Medicine
DX: C61 Malignant neoplasm of prostate (principal); I50.30 Unspecified diastolic (congestive) heart failure; N18.32 Chronic kidney disease, stage 3b
CPT/HCPCS: 36415; 80048; 83880; 84153; 85025; G0103

== ENCOUNTER → 2023-03-30 | Outpatient (CLI) | payer MEDICARE, OTHER, SELFPAY ==
[2023-03-30 16:56] LABS: Absolute Lymphocyte Count 1.66 X10^3/uL (0.83-4.51); Absolute Neutrophil Count 5.3 X10^3/uL (2.0-7.7); Basophil# 0.03 X10^3/uL; Basophil% 0.4 % (0-1); Eosinophil# 0.27 X10^3/uL; Eosinophils% 3.5 % (0-5); Hematocrit 38.6 % (40-54); Hemoglobin 11.9 g/dL (13.0-16.5); Lymphocyte # 1.66 X10^3/ul (0.83-4.51); Lymphocyte % 21.3 % (19-41); Mean Corp Hgb Conc 30.8 g/dL (32-36); Mean Corpuscular Volume 84.5 fL (80-94); Mean Platelet Vol. 9.9 fl (6.2-12.0); Monocyte# 0.47 X10^3/uL; NRBC Flagged by Analyzer 0 % (0-5); Neutrophil # 5.34 X10^3/uL (2.7-7.7); Neutrophil % 68.5 % (47-70); Platelet Count 186 K/mm3 (150-450); RBC Distribution Width CV 17.8 % (11.6-14.6); RBC Distribution Width SD 54.4 fl (35.1-43.9); Red Blood Count 4.57 M/mm3 (4.6-6.2); White Blood Count 7.8 K/mm3 (4.4-11.0)
[2023-03-30 17:19] LABS: ALB/GLOB Ratio 0.8 RATIO (0.9-2.4); AST(SGOT) 17 U/L (15-37); Alanine Aminotransfer ALT/SGPT 34 U/L (16-61); Albumin, Serum 3.4 g/dL (3.2-5.0); Alkaline Phosphatase 64 U/L (45-117); Anion Gap 6 (5-15); BUN 27 mg/dL (7-18); BUN/Creat Ratio 15.5 RATIO (10-20); Calcium,Total 9.1 mg/dL (8.5-10.1); Chloride 102 mmol/L (98-107); Creatinine, Serum 1.74 mg/dL (0.70-1.30); EST Glomerular Filtration Rate 41 mL/min (>60); Est Glom Filt Rate - Afr Amer 50 mL/min (>60); Globulin 4.1 g/dL (2.2-4.2); Glucose 132 mg/dL (74-106); Potassium 3.8 mmol/L (3.5-5.1); Protein, Total 7.5 g/dL (6.4-8.2); Sodium Level 138 mmol/L (136-145); Thyroid Stim Hormone (TSH) 1.37 uIU/mL (0.358-3.74)
== END | disposition home or self-care (01) ==
LOC: POLAB3 09:31
PROVIDERS: PCP Family Medicine Geriatric Medicine; Visit Provider Family Medicine Geriatric Medicine
DX: E11.65 Type 2 diabetes mellitus with hyperglycemia (principal); E55.9 Vitamin D deficiency, unspecified; I10 Essential (primary) hypertension
CPT/HCPCS: 36415; 80053; 82306; 84443; 85025